=== PATIENT | male | born 1970 ===

== ENCOUNTER 2023-05-16 13:18 | Outpatient (REF) | payer OTHER, SELFPAY ==
[2023-05-16 16:19] LABS: Urine Cytology See Pathology rpt
== END 2023-05-16 13:19 | disposition home or self-care (01) ==
LOC: HO.LAB 13:18
PROVIDERS: PCP Internal Medicine; Visit Provider Urology
DX: R31.9 Hematuria, unspecified (principal); F17.200 Nicotine dependence, unspecified, uncomplicated; Z71.6 Tobacco abuse counseling
CPT/HCPCS: 88112; 99202

== ENCOUNTER 2023-05-16 13:18 | Outpatient (AMB) | payer OTHER, SELFPAY ==
--- NOTE | 2023-05-16 13:20 | A.OFFVIS_ITS ---
Intake Intake Visit Reasons: Microscopic hematuria Intake Note: NEW Patient presents today to established treatment for Microscopic: Meds- None Allergies to Antibiotic- No Known Allergies Blood Thinner- None Cotton Stomper Required: No Accompanied by: Self / Same As Patient Allergies No Known Allergies Allergy (Verified 05/16/23 13:38) HPI HPI Comments History of Present Illness Details Branden is a 52-year-old male who presents today to the office to establish as a new patient for an evaluation of microscopic hematuria. 05/16/2023-- He presents today for an evaluation of hematuria. He has a history of cigarette smoking, smokes ? pack a day for about 20 year. Denies dysuria, nocturia 1-2 x. 05/16/2023: Evaluation today--UA--Leukoc ytes: negative; blood: 1 +. 05/16/2023: Plan: Ct urogram was ordered . I will send urine for cytology. Follow-up in office cystoscopy. [facility] Surgical History History of surgery on arm Family History Father No problems noted. Mother No problems noted. Social History Alcohol intake: current Alcohol intake frequency: does not drink Patient Tobacco Use Status: Current everyday Tobacco user Review of Systems Const All systems reviewed & are unremarkable except as noted in HPI and below Reports no additional complaints Eyes Reports no additional complaints ENT Reports no additional complaints Card Denies dyspnea Resp Denies cough and Denies dyspnea GI Reports no additional complaints Musc Reports no additional complaints Skin/Breast Denies rash and Denies unusual bruising Neuro Reports no additional complaints Psych Reports no additional complaints Endo Reports no additional complaints Taj/Lymph Reports no additional complaints Aller/Immun Reports no additional complaints Physical Exam Const General: healthy appearing, no acute distress and well developed Orientation/consciousness: patient oriented x3 HEENT Head: Yes normocephalic and Yes atraumatic Eyes Conjunctivae: conjunctivae normal Neck Neck: Yes normal visual inspection Chest Chest palpation & inspection: normal inspection of the chest Resp Effort & Inspection: normal respiratory effort Cardio Rate: regular rate GI Inspection: Yes normal to inspection Skin General skin exam: no rashes or lesions noted Neuro General: patient oriented x3 Extrem General: No pedal edema Psych Appearance: grossly normal Affect: normal affect Assessment & Plan Assessment & Plan (1) Hematuria: Code(s): R31.9 - Hematuria, unspecified (2) Nicotine dependence: Code(s): F17.200 - Nicotine dependence, unspecified, uncomplicated Plan Ct urogram was ordered. I will send urine for cytology. Follow-up in office cystoscopy. Orders: Orders Blood Urea Nitrogen 05/16/23 R31.9 - Hematuria, unspecified Urine Cytology 05/16/23 R31.9 - Hematuria, unspecified Creatinine 05/16/23 R31.9 - Hematuria, unspecified CT urogram 05/16/23 F17.200 - Nicotine dependence, unspecified, uncomplicated, R31.9 - Hematuria, unspecified Patient Instructions: The patient had an opportunity to ask questions regarding treatment plan. All questions were answered. Imaging, Laboratory studies and physical exam results were discussed and reviewed in detail. No major barriers to understanding were identified. The patient expressed understanding and agreement with the above treatment plan. The patient is aware they should contact our office by phone for worsening of their current condition or the appearance of new symptoms. Compliance is encouraged with any medications and followup testing that is ordered. It is a privilege to be allowed the opportunity to participate in the urologic care of your patient. If you have any questions or concerns regarding treatment for the above conditions please do not hesitate to contact me. The office telephone contact is [phone]. This note is constructed in part using voice recognition software. While every effort has been made to ensure accuracy egg and spice mixer errors may have been included. Yours sincerely, Kaleb Leija MD Coding Level of Care Code New Pt Level 4 (32379) Diagnoses Hematuria R31.9 Nicotine dependence F17.200
== END 2023-05-16 13:59 | disposition home or self-care (01) ==
PROVIDERS: PCP Internal Medicine; Visit Provider Urology
DX: R31.9 Hematuria, unspecified (principal); F17.200 Nicotine dependence, unspecified, uncomplicated
CPT/HCPCS: 99204

== ENCOUNTER 2023-07-04 09:20 | Outpatient (REF) | payer OTHER, SELFPAY ==
--- NOTE | ~2023-07-04 | CT_ITS ---
EXAMINATION: CT ABDOMEN AND PELVIS WITH CONTRAST CLINICAL INFORMATION: Hematuria. The exam was ordered as a CT Urogram however the ct technologist perform the scan with IV contrast only due to patient being claustrophobic. COMPARISON: None available. TECHNIQUE: CT of the abdomen and pelvis is performed followed by split bolus contrast-enhanced images using 85 mL Omnipaque 350 contrast.? Postcontrast imaging is performed during the combined nephrogram and excretion phase. Sagittal and coronal reformatted images were obtained on the technologist's workstation for both the precontrast and postcontrast phases. This CT examination was performed using dose optimization techniques as appropriate, variously including the following: *Automated exposure control *Adjustment of mA and/or kV according to patient size (this includes techniques or standardized protocols for targeted exams where dose is matched to indication/reason for exam; i.e. extremities or head) *Use of iterative reconstruction technique DLP: 677 mGy-cm FINDINGS: LUNG BASES: 4 mm smooth solid nodule in the left lower lobe series 2 image 7. No follow-up imaging is recommended as per Fleischner Society guidelines. LIVER, GALLBLADDER, AND BILIARY TREE: The liver is normal in size, shape, and attenuation. No focal hepatic lesion or biliary ductal dilatation is present. The gallbladder is unremarkable with no evidence of radiopaque gallstones, gallbladder wall thickening, or obvious pericholecystic inflammatory changes. PANCREAS: No discrete mass. No ductal dilatation. SPLEEN: Unremarkable. ADRENAL GLANDS: No adrenal mass. KIDNEYS AND URETERS: Evaluation for small calculi is limited due to the lack of an noncontrast acquisition. No sizable calculi are visible. Nephrograms are symmetric. Urinary excretion of contrast is symmetric. No hydroureteronephrosis or ureteral abnormalities. BLADDER: Partially distended. Evaluation for bladder calculi is limited without a noncontrast acquisition however no sizable calculus is visible. No discrete bladder mass. The bladder base is deformed by the enlarged prostate. GASTROINTESTINAL TRACT: The small and large bowel are normal in caliber. The appendix appears normal. No focal bowel wall thickening. ABDOMINAL WALL: Fat-containing direct left inguinal hernia. LYMPH NODES: No lymphadenopathy. VASCULAR: No aortic aneurysm. PELVIC VISCERA: The prostate measures 4.8 x 4.9 x 4.6 cm. Approximately 50 mL. OSSEUS STRUCTURES: Mild degenerative changes in the spine. CT/CT urogram IMPRESSION: Exam is limited without noncontrast acquisition which was not performed due to patient's claustrophobia. No visible renal, ureteral, or bladder calculi. No suspicious renal mass. No hydroureteronephrosis. Enlarged prostate measuring approximately 50 mL. Other chronic and incidental findings as above. Fleischner society guidelines were followed.
[2023-07-04] MEDS: iohexoL 350 MG/ML 75 ML INFUS..BTL 85 ML IV (10:20)
[2023-07-04 14:10] LABS: Creatinine POC 0.7 mg/dL (0.5-1.4); GFR POC > 60
== END 2023-07-04 09:21 | disposition home or self-care (01) ==
LOC: HO.CT 09:20
PROVIDERS: PCP Internal Medicine; Visit Provider Urology
DX: R31.9 Hematuria, unspecified (principal); F17.200 Nicotine dependence, unspecified, uncomplicated
CPT/HCPCS: 74178; 82565; Q9967

== ENCOUNTER 2023-07-15 15:46 | Outpatient (AMB) | payer OTHER, SELFPAY ==
--- NOTE | 2023-07-15 15:47 | A.OFFVIS_ITS ---
Intake Intake Visit Reasons: CT Scan Results Intake Note: Patient presents today for CT Scan Results: Meds- None Allergies to Antibiotic- No Known Allergies Blood Thinner- None Drilling Inspector Required: No Accompanied by: Self / Same As Patient Allergies No Known Allergies Allergy (Verified 05/16/23 13:38) HPI HPI Comments History of Present Illness Details Branden is a 52-year-old male who presents today for Telehealth FU due to microscopic hematuria. Video Attempted. He was initially on-05/16/2023--for an evaluation of hematuria. He has a history of cigarette smoking, smokes ? pack a day for about 20 year. Denies dysuria, nocturia 1-2 x. 05/16/2023: Evaluation today--UA--Leukoc ytes: negative; blood: 1 +. 07/15/23--I have discussed CT urogram resu lts enlarged prostate, estimated volume 50 mL, urine cytology negative 07/15/23: Plan: Follow-up in office cystos copy. [facility] Surgical History History of surgery on arm Family History Father No problems noted. Mother No problems noted. Social History Alcohol intake: current Alcohol intake frequency: does not drink Patient Tobacco Use Status: Current everyday Tobacco user Review of Systems Const All systems reviewed & are unremarkable except as noted in HPI and below Reports no additional complaints Eyes Reports no additional complaints ENT Reports no additional complaints Card Denies dyspnea Resp Denies cough and Denies dyspnea GI Reports no additional complaints Musc Reports no additional complaints Skin/Breast Denies rash and Denies unusual bruising Neuro Reports no additional complaints Psych Reports no additional complaints Endo Reports no additional complaints Taj/Lymph Reports no additional complaints Aller/Immun Reports no additional complaints Results Reviewed Results Reviewed: Date of Service: 07/04/23 EXAMINATION: CT ABDOMEN AND PELVIS WITH CONTRAST CLINICAL INFORMATION: Hematuria. The exam was ordered as a CT Urogram however the cath lab technologist perform the scan with IV contrast only due to patient being claustrophobic. COMPARISON: None available. TECHNIQUE: CT of the abdomen and pelvis is performed followed by split bolus contrast-enhanced images using 85 mL Omnipaque 350 contrast. FINDINGS: LUNG BASES: 4 mm smooth solid nodule in the left lower lobe series 2 image 7. No follow-up imaging is recommended as per Fleischner Society guidelines. LIVER, GALLBLADDER, AND BILIARY TREE: The liver is normal in size, shape, and attenuation. No focal hepatic lesion or biliary ductal dilatation is present. The gallbladder is unremarkable with no evidence of radiopaque gallstones, gallbladder wall thickening, or obvious pericholecystic inflammatory changes. PANCREAS: No discrete mass. No ductal dilatation. SPLEEN: Unremarkable. ADRENAL GLANDS: No adrenal mass. KIDNEYS AND URETERS: Evaluation for small calculi is limited due to the lack of an noncontrast acquisition. No sizable calculi are visible. Nephrograms are symmetric. Urinary excretion of contrast is symmetric. No hydroureteronephrosis or ureteral abnormalities. BLADDER: Partially distended. Evaluation for bladder calculi is limited without a noncontrast acquisition however no sizable calculus is visible. No discrete bladder mass. The bladder base is deformed by the enlarged prostate. GASTROINTESTINAL TRACT: The small and large bowel are normal in caliber. The appendix appears normal. No focal bowel wall thickening. ABDOMINAL WALL: Fat-containing direct left inguinal hernia. LYMPH NODES: No lymphadenopathy. VASCULAR: No aortic aneurysm. PELVIC VISCERA: The prostate measures 4.8 x 4.9 x 4.6 cm. Approximately 50 mL. OSSEUS STRUCTURES: Mild degenerative changes in the spine. IMPRESSION: Exam is limited without noncontrast acquisition which was not performed due to patient's claustrophobia. No visible renal, ureteral, or bladder calculi. No suspicious renal mass. No hydroureteronephrosis. Enlarged prostate measuring approximately 50 mL. Collected: 05/16/23 Location: .LAB Received: 05/17/23 Diagnosis Urine: Negative for high-grade urothelial carcinoma. See comment. COMMENT: Cellular specimen consisting of a rare small group of urothelial cells, which are small/medium in size and have variable chromatin. The background has single urothelial cells without atypia, squamous cells, red blood cells, rare acute inflammatory cells and crystals. The differential diagnosis for these types of groups of urothelial cells includes infection, trauma (e.g. stones) and other types of urothelial neoplasms. Assessment & Plan Assessment & Plan (1) Hematuria: Code(s): R31.9 - Hematuria, unspecified (2) Nicotine dependence: Code(s): F17.200 - Nicotine dependence, unspecified, uncomplicated Plan fu office cystoscopy Patient Instructions: The patient had an opportunity to ask questions regarding treatment plan. All questions were answered. Imaging, Laboratory studies and physical exam results were discussed and reviewed in detail. No major barriers to understanding were identified. The patient expressed understanding and agreement with the above treatment plan. The patient is aware they should contact our office by phone for worsening of their current condition or the appearance of new symptoms. Compliance is encouraged with any medications and followup testing that is ordered. It is a privilege to be allowed the opportunity to participate in the urologic care of your patient. If you have any questions or concerns regarding treatment for the above conditions please do not hesitate to contact me. The office telephone contact is [phone]. This note is constructed in part using voice recognition software. While every effort has been made to ensure accuracy plating machine operator errors may have been included. Yours sincerely, Kaleb Leija MD Telehealth Telehealth Location of provider rendering services: practice address Patient Identification confirmed using: Name, : Yes Telehealth method: voice only Patient verbally consented to treatment: Yes Patient verbally consented to billing insurance company: Yes Patient informed of any privacy concerns related to visit: Yes Minutes spent on Phone/Video with Pt.: 18 Coding Level of Care Code Tele Est Pt Level 4 (24834) Diagnoses Hematuria R31.9 Nicotine dependence F17.200
--- OUTSIDE RECORDS SUMMARY | 2023-07-15 15:48 | XMS_ITS | Continuity of Care Document ---
Author Name Unknown Organization [facility] Address [address] [place] [id number]- Care Team Providers Care It Quality Analyst Name Role Phone Jeanne Gandara DO Primary Care Physician [facility]counter [facility] Date(s): 10/03/19 - 11/02/19 [facility] [address] [place] [phone]- [facility] Attending Physician: Tory Pinto Admitting Physician: AdmtrTory Referring Physician: AdmtrTory Allergies, Adverse Reactions, Alerts Substance Reaction Severity Status NKA Active Immunizations Given and Recorded Vaccine Date Status Refusal Reason Varicella Virus Vaccine 1 04/27/17 Given Varicella Virus Vaccine 09/07/12 Recorded influenza virus vaccine, inactivated 2 03/30/17 Gi serafin influenza virus vaccine, inactivated 03/26/16 Give n hepatitis B adult vaccine 06/03/16 Given hepatitis B adult vaccine 07/17/12 Recorded hepatitis B adult vaccine 06/15/12 Recorded Measles/Mumps/Rubella Virus Vaccine 06/15/12 Recor ded Measles/Mumps/Rubella Virus Vaccine 05/15/12 Recor ded tetanus/diphtheria/pertussis, acel(Tdap) 3 05/24/12 Recorded 1Result Comment: [04/27/2017] Reconstituted with sterile diluent [employer] filippo Lot [id number] exp. 04/13/2019 2Result Comment: [03/30/2017] [facility] [place] [id number] 3Location History: [facility] Medications 0.2 % nifedipine hydrophylic ointment 0.2 % nifedipine hydrophylic ointment, See Instructions, # 30 Gm, Refills 1, Tot. Refills 1, Maintenance, apply a pea size amout to anal area for pain, use 3-4x a day for 6 weeks, 01/26/19 10:45:16 EDT, Compound Start Date: 01/26/19 Status: Ordered atorvastatin 20 mg oral tablet 1 tablet = 20 mg, By Mouth, Daily, # 30 tablet, 11 Refills, Maintenance, Tablet, Route to Pharmacy Electronically, [id number], [address] Start Date: 07/13/18 Status: Ordered Colace sodium 100 mg oral capsule 100 mg, 1, capsule, By Mouth, 2 times a day, PRN, with plenty of water., # 60 capsule, Refills 2, Tot. Refills 2, Maintenance, for constipation, 10/04/18 11:02:18 EDT, Route to Pharmacy Electronically, [id number], [address] Start Date: 10/04/18 Status: Ordered Melatonin 5 mg oral tablet 1 tablet = 5 mg, By Mouth, Daily at bedtime, PRN for insomnia, for 30 days, # 60 tablet, 1 Refills,Acute 12/02/19 10:51:00 EDT, 10/03/19 10:51:00 EDT, Tablet, [facility] #[id number], 171, cm, 03/07/19 11:09:00 EDT, Height Start Date: 10/03/19 Stop Date: 12/02/19 Status: Ordered mirtazapine 30 mg oral tablet 1 tablet = 30 mg, By Mouth, Daily at bedtime, dose increased, # 30 tablet, 2 Refills, Maintenance, 09/19/19 10:52:00 EDT, Tablet, [facility] #[id number], 171, cm, 03/07/19 11:09:00 EDT, Height Start Date: 09/19/19 Status: Ordered nicotine 21 mg/24 hr transdermal film, extended release 1 patch, Topically, Daily, no smoking with patch, # 30 patch, 1 Refills, Maintenance, 09/13/19 13:18:00 EDT, Patch, [facility] #[id number], 1 patch Topically Daily,Instr:no smoking with patch, 171, cm, 03/07/19 11:09:00 EDT, Height Start Date: 09/13/19 Status: Ordered Proctozone HC 2.5% topical cream 1 applicator, Topically, 2 times a day, # 30 Gm, 1 Refills, Maintenance, 03/07/19 11:32:32 EDT, 1 applicator Topically 2 times a day,x14 days Start Date: 03/07/19 Stop Date: 04/04/19 Status: Ordered Problem List Condition Effective Dates Status Health Status Inform ant Burning epigastric pain(Confirmed) Active Burning reflux(Confirmed) Active Cubital tunnel syndrome on left(Confirmed) Active Dyslipidemia(Confirmed) Active External hemorrhoid(Confirmed) Active RADHA (generalized anxiety disorder)(Confirmed) Active Heartburn symptom(Confirmed) Active Vomiting(Confirmed) Active Social History Social History Type Response Smoking Status Current some day smo ker; Type: Cigarettes; Tobacco use times per day: 15-20 cigarettes; Started at age: 29; entered on: 09/24/14 Sex
--- OUTSIDE RECORDS SUMMARY | 2023-07-15 15:48 | XMS_ITS | Continuity of Care Document ---
Author Name Unknown Organization [facility] Address [address] [place] [address]- Care Team Providers Care Human Services Program Specialist Name Role Phone Jeanne Gandara DO Primary Care Physician [facility] Date[facility]s): 09/27/19 - 11/04/19 [facility] [address] [place] [id number]- [facility] Attending Physician: Not on Staff, Attending MD Allergies, Adverse Reactions, Alerts Substance Reaction Severity [...] 1Result Comment: [04/27/2017] Reconstituted with sterile diluent [employer] filippo Lot [id number] exp. 04/13/2019 2Result Comment: [03/30/2017] [facility] [place] [id number] 3Location History: [facility] Medications 0.2 % nifedipine hydrophylic ointment [...] Refills, Maintenance, Tablet, Route to Pharmacy Electronically, [facility]_[id number], [address] Start Date: 07/13/18 Status: Ordered Colace sodium 100 mg oral capsule 100 mg, 1, capsule, By Mouth, 2 times a day, PRN, with plenty of water., # 60 capsule, Refills 2, Tot. Refills 2, Maintenance, for constipation, 10/04/18 11:02:18 EDT, Route to Pharmacy Electronically, [facility]_[id number], [address] Start Date: 10/04/18 Status: Ordered Melatonin 5 mg oral tablet 1 tablet = 5 mg, By Mouth, Daily at bedtime, PRN for insomnia, for 30 days, # 60 tablet, 1 Refills,Acute 12/02/19 10:51:00 EDT, 10/03/19 10:51:00 EDT, Tablet, [facility] #[id number], 171, cm, 03/07/19 11:09:00 EDT, Height Start Date: 10/03/19 Stop Date: 12/02/19 Status: Ordered mirtazapine 30 mg oral tablet 1 tablet = 30 mg, By Mouth, Daily at bedtime, dose increased, # 30 tablet, 2 Refills, Maintenance, 09/19/19 10:52:00 EDT, Tablet, [facility] #[id number], 171, cm, 03/07/19 11:09:00 EDT, Height Start Date: 09/19/19 Status: Ordered nicotine 21 mg/24 hr transdermal film, extended release 1 patch, Topically, Daily, no smoking with patch, # 30 patch, 1 Refills, Maintenance, 09/13/19 13:18:00 EDT, Patch, [facility] #[id number], 1 patch Topically Daily,Instr:no smoking with patch, [...]
--- OUTSIDE RECORDS SUMMARY | 2023-07-15 15:48 | XMS_ITS | Continuity of Care Document ---
Author Name Unknown Organization [facility] Address [address] [place] [id number]- Care Team Providers Care Multifocal Button Grinder Name Role Phone Jeanne Gandara DO Primary Care Physician [facility]counter [facility] Date(s): 09/19/19 - 09/26/19 [facility] [address] [place] [id number]- [facility] Attending Physician: Sonali Murphy NP Allergies, Adverse Reactions, Alerts Substance Reaction Severity [...] 1Result Comment: [04/27/2017] Reconstituted with sterile diluent [employer]o Lot [id number] exp. 04/13/2019 2Result Comment: [03/30/2017] [facility] [phone] 3Location History: Replaced By [facility] Medications 0.2 % nifedipine hydrophylic ointment [...] Refills, Maintenance, Tablet, Route to Pharmacy Electronically, NCPDP_[id number], [address] Start Date: 07/13/18 Status: Ordered citalopram 10 mg oral tablet 10 mg, 1, tablet, By Mouth, Daily, take daily for anxiety/ depression, stop Wellbutrin, # 30 tablet, Refills 1, Tot. Refills 1, Maintenance, 09/20/19 15:20:00 EDT, Route to Pharmacy Electronically, [facility] #[id number], 171, cm, 03/07/19 11:09:... Start Date: 09/20/19 Status: Ordered Colace sodium 100 mg oral capsule 100 mg, 1, capsule, By Mouth, 2 times a day, PRN, with plenty of water., # 60 capsule, Refills 2, Tot. Refills 2, Maintenance, for constipation, 10/04/18 11:02:18 EDT, Route to Pharmacy Electronically, NCPDP_[id number], [address] Start Date: 10/04/18 Status: Ordered mirtazapine 30 mg oral tablet 1 tablet = 30 mg, By Mouth, Daily at bedtime, dose increased, # 30 tablet, 2 Refills, Maintenance, 09/19/19 10:52:00 EDT, Tablet, [facility] #[id number], 171, cm, 03/07/19 11:09:00 EDT, Height Start Date: 09/19/19 Status: Ordered nicotine 21 mg/24 hr transdermal film, extended release 1 patch, Topically, Daily, no smoking with patch, # 30 patch, 1 Refills, Maintenance, 09/13/19 13:18:00 EDT, Patch, [facility] #[id number], 1 patch Topically Daily,Instr:no smoking with patch, [...]
--- OUTSIDE RECORDS SUMMARY | 2023-07-15 15:48 | XMS_ITS | Continuity of Care Document ---
Author Name Unknown Organization [facility] Address [address] [place] [address]- Care Team Providers Care Seat Mender Name Role Phone Jeanne Gandara DO Primary Care Physician [facility]): [facility]21 - 11/26/21 [facility] [address] [place] [id number] Attending Physician: Jeanne Gandara DO Admitting Physician: Jeanne Gandara DO Allergies, Adverse Reactions, Alerts No Known Allergies Immunizations Given and Recorded Vaccine Date Status Refusal Reason SARS-CoV-2 (COVID-19) mRNA BNT-162b2 vac 02/10/21 Recorded SARS-CoV-2 (COVID-19) mRNA BNT-162b2 vac 01/20/21 Recorded influenza virus vaccine, inactivated 02/04/20 Matt rded influenza virus vaccine, inactivated 03/03/18 Matt rded influenza virus vaccine, inactivated 1 03/30/17 Gi serafin influenza virus vaccine, inactivated 03/26/16 Give n influenza virus vaccine, inactivated 07/02/15 Matt rded Varicella Virus Vaccine 2 04/27/17 Given Varicella Virus Vaccine 09/07/12 Recorded hepatitis B adult vaccine 06/03/16 Given hepatitis B adult vaccine 07/17/12 Recorded hepatitis B adult vaccine 06/15/12 Recorded Measles/Mumps/Rubella Virus Vaccine 06/15/12 Recor ded Measles/Mumps/Rubella Virus Vaccine 05/15/12 Recor ded tetanus/diphtheria/pertussis, acel(Tdap) 3 05/24/12 Recorded 1Result Comment: [03/30/2017] [facility] [id number] 2Result Comment: [04/27/2017] Reconstituted with sterile diluent [employer] and [employer] filippo Lot [id number] exp. 04/13/2019 3Location History: [facility] Medications atorvastatin 20 mg oral tablet 1 tablet = 20 mg, By Mouth, Daily, # 30 tablet, 11 Refills, Maintenance, 09/14/21 9:11:00 EDT, Tablet, [facility] #[id number], 168, cm, 09/14/21 8:33:00 EDT, Height, 75, kg, 08/04/20 16:27:00 EST, Dry Weight Start Date: 09/14/21 Status: Ordered Flonase Sensimist 27.5 mcg/inh nasal spray = 27.5 mcg, Inhalation, Daily, PRN Congestion, Use in each nostril, # 15.8 mL, 0 Refills, Maintenance, 05/18/21 15:29:00 EST, [facility] #[id number], Partial fill upon patient request if the prescription is for a schedule II opioid drug., 27.5 mc... Start Date: 05/18/21 Status: Ordered omeprazole 20 mg oral enteric coated capsule 1 capsule = 20 mg, By Mouth, Daily, # 30 capsule, 2 Refills, Maintenance, 09/14/21 9:11:00 EDT, EC Capsule, [facility] #[id number], Partial fill upon patient request if the prescription is for aschedule II opioid drug., 168, cm, 09/14/21 8:33:00... Start Date: 09/14/21 Status: Ordered Problem List Condition Effective Dates Status Health Status Inform ant Burning epigastric pain(Confirmed) Active Burning reflux(Confirmed) Active Cubital tunnel syndrome on left(Confirmed) Active Dyslipidemia(Confirmed) Active External hemorrhoid(Confirmed) Active RADHA (generalized anxiety disorder)(Confirmed) Active Heartburn symptom(Confirmed) Active Obese class I(Confirmed) Active Vomiting(Confirmed) Active Social History Social History Type Response Smoking Status 10 or more cigarette s (1/2 pack or more)/day in last 30 days; Interested in cessation: No entered on: 03/02/21 Sex
--- OUTSIDE RECORDS SUMMARY | 2023-07-15 15:48 | XMS_ITS | Continuity of Care Document ---
Author Name Unknown Organization [facility] Address [address] [place] [address]- Care Team Providers Care Route Sales Associate Name Role Phone Jeanne Gandara DO Primary Care Physician [facility] 09[facility]11/21 - 10/21/21 [facility] [address] [place] [address]- Attending Physician: Marlo Banegas Admitting Physician: Marlo Banegas Allergies, Adverse Reactions, Alerts No Known Allergies [...] acel(Tdap) 3 05/24/12 Recorded 1Result Comment: [03/30/2017] [facility] [id number] 2Result Comment: [04/27/2017] Reconstituted with sterile diluent [employer] and Dohme filippo Lot [id number] exp. 04/13/2019 3Location History: [facility] Medications atorvastatin 20 mg oral tablet 1 tablet = 20 mg, By Mouth, Daily, # 30 tablet, 11 Refills, Maintenance, 09/14/21 9:11:00 EDT, Tablet, [facility] #[id number], 168, cm, 09/14/21 8:33:00 EDT, Height, 75, kg, 08/04/20 16:27:00 EST, Dry Weight Start Date: 09/14/21 Status: Ordered Flonase Sensimist 27.5 mcg/inh nasal spray = 27.5 mcg, Inhalation, Daily, PRN Congestion, Use in each nostril, # 15.8 mL, 0 Refills, Maintenance, 05/18/21 15:29:00 EST, [facility] #[id number], Partial fill upon patient request if the prescription is for a schedule II opioid drug., 27.5 mc... Start Date: 05/18/21 Status: Ordered omeprazole 20 mg oral enteric coated capsule 1 capsule = 20 mg, By Mouth, Daily, # 30 capsule, 2 Refills, Maintenance, 09/14/21 9:11:00 EDT, EC Capsule, [facility] #[id number], Partial fill upon patient request if the [...]
--- OUTSIDE RECORDS SUMMARY | 2023-07-15 15:48 | XMS_ITS | Continuity of Care Document ---
Author Name Unknown Organization [facility] Address [address] [place] [address]- Care Team Providers Care Taxation Consultant Name Role Phone Jeanne Gandara DO Primary Care Physician [facility]): 05[facility]18/21 - 06/17/21 [facility] [address] [place] [address]- Attending Physician: Admtr, Tory Admitting Physician: Admtr, Tory Referring Physician: Admtr, Ar8 Allergies, Adverse Reactions, Alerts Substance Reaction Severity [...] acel(Tdap) 3 05/24/12 Recorded 1Result Comment: [03/30/2017] [facility] [id number] 2Result Comment: [04/27/2017] Reconstituted with sterile diluent [employer] and Dohme filippo Lot [id number] exp. 04/13/2019 3Location History: [facility] Medications atorvastatin 20 mg oral tablet 1 tablet = 20 mg, By Mouth, Daily, # 30 tablet, 0 Refills, Maintenance, 05/05/21 8:50:00 EST, Tablet, [facility] #[id number], 168, cm, 05/01/21 14:15:00 EST, Height, 75, kg, 08/04/20 16:27:00 EST, Dry Weight Start Date: 05/05/21 Stop Date: 06/04/21 Status: Ordered Flonase Sensimist 27.5 mcg/inh nasal spray = 27.5 mcg, Inhalation, Daily, PRN Congestion, Use in each nostril, # 15.8 mL, 0 Refills, Maintenance, 05/18/21 15:29:00 EST, [facility] #[id number], Partial fill upon patient request if the prescription is for a schedule II opioid drug., 27.5 mc... Start Date: 05/18/21 Status: Ordered omeprazole 20 mg oral enteric coated capsule 1 capsule = 20 mg, By Mouth, Daily, # 30 capsule, 0 Refills, Maintenance, 05/05/21 8:51:00 EST, EC Capsule, [facility] #[id number], Partial fill upon patient request if the prescription is for aschedule II opioid drug., 168, cm, 05/01/21 14:15:0... Start Date: 05/05/21 Stop Date: 06/04/21 Status: Ordered Problem List Condition Effective Dates [...]
--- OUTSIDE RECORDS SUMMARY | 2023-07-15 15:48 | XMS_ITS | Continuity of Care Document ---
Author Name Unknown Organization [facility] Address [address] [place] [address]- Care Team Providers Care Soa Integration Developer Name Role Phone Jeanne Gandara DO Primary Care Physician [place] [facility] [place] 02/03[place]22 - 04/03/22 [facility] [address] [place] [address]- Attending Physician: Not on Staff, Attending MD Allergies, Adverse Reactions, Alerts No Known Allergies Immunizations Given and Recorded Vaccine Date Status Refusal Reason SARS-CoV-2 mRNA (ocrcgud-kajh-jrbqv) vax 12/16/21 Recorded influenza virus vaccine, inactivated 03/09/21 Matt rded influenza virus vaccine, inactivated 02/04/20 Matt rded influenza virus vaccine, inactivated 03/03/18 Matt rded influenza virus vaccine, inactivated 1 03/30/17 Gi serafin influenza virus vaccine, inactivated 03/26/16 Give n influenza virus vaccine, inactivated 07/02/15 Matt rded SARS-CoV-2 (COVID-19) mRNA BNT-162b2 vac 02/10/21 Recorded SARS-CoV-2 (COVID-19) mRNA BNT-162b2 vac 01/20/21 Recorded Varicella Virus Vaccine 2 04/27/17 Given Varicella Virus Vaccine 09/07/12 Recorded hepatitis B adult vaccine 06/03/16 Given hepatitis B adult vaccine 07/17/12 Recorded hepatitis B adult vaccine 06/15/12 Recorded Measles/Mumps/Rubella Virus Vaccine 06/15/12 Recor ded Measles/Mumps/Rubella Virus Vaccine 05/15/12 Recor ded tetanus/diphtheria/pertussis, acel(Tdap) 3 12/12/12 Recorded 1Result Comment: [03/30/2017] [facility] [id number] 2Result Comment: [04/27/2017] Reconstituted with sterile diluent [employer] Sharp and Dohme filippo Lot [id number] exp. 04/13/2019 3Location History: [facility] Medications atorvastatin 20 mg oral tablet 1 tablet = 20 mg, By Mouth, Daily, # 30 tablet, 11 Refills, Maintenance, 09/14/21 9:11:00 EDT, Tablet, [facility] #[id number], 168, cm, 09/14/21 8:33:00 EDT, Height, 75, kg, 08/04/20 16:27:00 EST, Dry Weight Start Date: 09/14/21 Status: Ordered Flonase Sensimist 27.5 mcg/inh nasal spray = 27.5 mcg, Inhalation, Daily, PRN Congestion, Use in each nostril, # 15.8 mL, 0 Refills, Maintenance, 05/18/21 15:29:00 EST, [facility] #[id number], Partial fill upon patient request if the prescription is for a schedule II opioid drug., 27.5 mc... Start Date: 05/18/21 Status: Ordered omeprazole 20 mg oral enteric coated capsule 1 capsule = 20 mg, By Mouth, Daily, # 30 capsule, 2 Refills, Maintenance, 12/21/21 11:37:00 EDT, ECCapsule, [facility] #[id number], Partial fill upon patient request if the prescription is for a schedule II opioid drug., 168, cm, 10/27/21 10:08:... Start Date: 12/21/21 Status: Ordered Problem List Condition Confirmation Course Effective Dates Status Health St [facility] Informant Burning epigastric pain Confirmed Active Burning reflux Confirmed Active Cubital tunnel syndrome on left Confirmed Active Dyslipidemia Confirmed Active External hemorrhoid Confirmed Active RADHA (generalized anxiety disorder) Confirmed Active Heartburn symptom Confirmed Active Obese class I Confirmed Active Vomiting Confirmed Active Social History Social History Type Response Smoking Status 10 or more cigarette s (1/2 pack or more)/day in last 30 days; Interested in cessation: No entered on: 03/02/21 Sex Patient Care team information Personnel Name: Jeanne Gandara DO Address: Address: [address] [place] [address]
--- OUTSIDE RECORDS SUMMARY | 2023-07-15 15:48 | XMS_ITS | Continuity of Care Document ---
Author Name Unknown Organization [facility] Address [address] [place] [id number]- Care Team Providers Care Watchguard Name Role Phone Jeanne Gandara DO Primary Care Physician [place] [facility] [place] 09/28/[place] - 10/28/[address] [address]- Attending Physician: Admtr, Zion8 Admitting Physician: Admtr, Ar8 Referring Physician: Admtr, Ar8 Allergies, Adverse Reactions, Alerts No Known Allergies [...] Comment: [03/30/2017] [facility] [id number] 2Result Comment: [04/27/2017] Reconstituted with sterile diluent [employer] Sharp and Dohme filippo Lot [id number] exp. 04/13/2019 3Location History: [facility] Medications atorvastatin 20 mg oral tablet 1 tablet = 20 mg, By Mouth, Daily, # 30 tablet, 11 Refills, Maintenance, 09/14/21 9:11:00 EDT, Tablet, [facility] #[id number], 168, cm, 09/14/21 8:33:00 EDT, Height, 75, kg, 08/04/20 16:27:00 EST, Dry Weight Start Date: 09/14/21 Status: Ordered Flonase Sensimist 27.5 mcg/inh nasal spray = 27.5 mcg, Inhalation, Daily, PRN Congestion, Use in each nostril, # 15.8 mL, 0 Refills, Maintenance, 05/18/21 15:29:00 EST, [facility] #[id number], Partial fill upon patient request if the prescription is for a schedule II opioid drug., 27.5 mc... Start Date: 05/18/21 Status: Ordered omeprazole 20 mg oral enteric coated capsule 1 capsule = 20 mg, By Mouth, Daily, # 30 capsule, 2 Refills, Maintenance, 09/14/21 9:11:00 EDT, EC Capsule, [facility] #[id number], Partial fill upon patient request if the [...]
--- OUTSIDE RECORDS SUMMARY | 2023-07-15 15:48 | XMS_ITS | Continuity of Care Document ---
Author Name Unknown Organization [facility] Address [address] [place] [address]- Care Team Providers Care Remedial Reading Teacher Name Role Phone Jeanne Gandara DO Primary Care Physician [facility] 07/14/21 - 09/16/[address] [address]- Attending Physician: Not on Staff, Attending MD [...] acel(Tdap) 3 05/24/12 Recorded 1Result Comment: [03/30/2017] [facility] [id number] 2Result Comment: [04/27/2017] Reconstituted with sterile diluent [employer] Sharp and Dohme filippo Lot [id number] exp. 04/13/2019 3Location History: [facility] Medications atorvastatin 20 mg oral tablet 1 tablet = 20 mg, By Mouth, Daily, # 30 tablet, 11 Refills, Maintenance, 09/14/21 9:11:00 EDT, Tablet, [facility] #[id number], 168, cm, 09/14/21 8:33:00 EDT, Height, 75, kg, 08/04/20 16:27:00 EST, Dry Weight Start Date: 09/14/21 Status: Ordered Flonase Sensimist 27.5 mcg/inh nasal spray = 27.5 mcg, Inhalation, Daily, PRN Congestion, Use in each nostril, # 15.8 mL, 0 Refills, Maintenance, 05/18/21 15:29:00 EST, [facility] #[id number], Partial fill upon patient request if the prescription is for a schedule II opioid drug., 27.5 mc... Start Date: 05/18/21 Status: Ordered omeprazole 20 mg oral enteric coated capsule 1 capsule = 20 mg, By Mouth, Daily, # 30 capsule, 2 Refills, Maintenance, 09/14/21 9:11:00 EDT, EC Capsule, [facility] #[id number], Partial fill upon patient request if the [...]
--- OUTSIDE RECORDS SUMMARY | 2023-07-15 15:48 | XMS_ITS | Continuity of Care Document ---
Author Name Unknown Organization [facility] Address [address] [place] [address]- Care Team Providers Care Patient Day Coordinator Name Role Phone Jeanne Gandara DO Primary Care Physician [facility]): 03[facility]04/22 - 04/03/22 [facility] [address] [place] [address] Attending Physician: Tory Pinto Admitting Physician: AdmTory sanabria Referring Physician: AdmtrTory Allergies, Adverse Reactions, Alerts No Known Allergies Immunizations Given and Recorded Vaccine Date Status Refusal Reason SARS-CoV-2 mRNA (bpfqrst-wqcu-fomin) vax 12/16/21 Recorded influenza virus vaccine, inactivated [...] Recorded 1Result Comment: [03/30/2017] [facility] [id number] 2Result Comment: [04/27/2017] Reconstituted with sterile diluent [employer] and [employer] filippo Lot [id number] exp. 04/13/2019 3Location History: [facility] Medications atorvastatin 20 mg oral tablet 1 tablet = 20 mg, By Mouth, Daily, # 30 tablet, 11 Refills, Maintenance, 09/14/21 9:11:00 EDT, Tablet, [facility] #[id number], 168, cm, 09/14/21 8:33:00 EDT, Height, 75, kg, 08/04/20 16:27:00 EST, Dry Weight Start Date: 09/14/21 Status: Ordered Flonase Sensimist 27.5 mcg/inh nasal spray = 27.5 mcg, Inhalation, Daily, PRN Congestion, Use in each nostril, # 15.8 mL, 0 Refills, Maintenance, 05/18/21 15:29:00 EST, [facility] #[id number], Partial fill upon patient request if the prescription is for a schedule II opioid drug., 27.5 mc... Start Date: 05/18/21 Status: Ordered omeprazole 20 mg oral enteric coated capsule 1 capsule = 20 mg, By Mouth, Daily, # 30 capsule, 2 Refills, Maintenance, 12/21/21 11:37:00 EDT, ECCapsule, [facility] #[id number], Partial fill upon patient request if the [...] Personnel Name: Jeanne Gandara DO Address: Address: [address] [place] [address] [address]-
--- OUTSIDE RECORDS SUMMARY | 2023-07-15 15:48 | XMS_ITS | Continuity of Care Document ---
Author Name Unknown Organization [facility] Address [address] [place] [address]- Care Team Providers Care Ornamental Iron Erector Name Role Phone Jeanne Gandara DO Primary Care Physician [facility] 05/04/21 - 06/03/21 [facility] [address] [place] [address]- Allergies, Adverse Reactions, Alerts Substance Reaction Severity [...] acel(Tdap) 3 05/24/12 Recorded 1Result Comment: [03/30/2017] [facility] [id number] 2Result Comment: [04/27/2017] Reconstituted with sterile diluent [employer] and [employer] filippo Lot [id number] exp. 04/13/2019 3Location History: [facility] Medications atorvastatin 20 mg oral tablet 1 tablet = 20 mg, By Mouth, Daily, # 30 tablet, 0 Refills, Maintenance, 05/05/21 8:50:00 EST, Tablet, [facility] #[id number], 168, cm, 05/01/21 14:15:00 EST, Height, 75, kg, 08/04/20 16:27:00 EST, Dry Weight Start Date: 05/05/21 Stop Date: 06/04/21 Status: Ordered Flonase Sensimist 27.5 mcg/inh nasal spray = 27.5 mcg, Inhalation, Daily, PRN Congestion, Use in each nostril, # 15.8 mL, 0 Refills, Maintenance, 05/18/21 15:29:00 EST, [facility] #[id number], Partial fill upon patient request if the prescription is for a schedule II opioid drug., 27.5 mc... Start Date: 05/18/21 Status: Ordered omeprazole 20 mg oral enteric coated capsule 1 capsule = 20 mg, By Mouth, Daily, # 30 capsule, 0 Refills, Maintenance, 05/05/21 8:51:00 EST, EC Capsule, [facility] #[id number], Partial fill upon patient request if the [...]
--- OUTSIDE RECORDS SUMMARY | 2023-07-15 15:48 | XMS_ITS | Continuity of Care Document ---
Author Name Unknown Organization [facility] Address [address] [place] [address]- Care Team Providers Care Sales Representative Groceries Name Role Phone Jeanne Gandara DO Primary Care Physician [facility]): 10/03/19 - 10/10/19 [facility] [address] [place] [id number] [facility] Attending Physician: Jeanne Gandara DO Allergies, Adverse Reactions, Alerts Substance Reaction Severity [...] 1Result Comment: [04/27/2017] Reconstituted with sterile diluent [employer] Sharp and Dohme filippo Lot [id number] exp. 04/13/2019 2Result Comment: [03/30/2017] [facility] [id number] 3Location History: [facility] Medications 0.2 % nifedipine hydrophylic ointment [...] Refills, Maintenance, Tablet, Route to Pharmacy Electronically, NCPDP_[id number], [address] Start Date: 07/13/18 Status: Ordered Colace sodium 100 mg oral capsule 100 mg, 1, capsule, By Mouth, 2 times a day, PRN, with plenty of water., # 60 capsule, Refills 2, Tot. Refills 2, Maintenance, for constipation, 10/04/18 11:02:18 EDT, Route to Pharmacy Electronically, NCPDP_[id number], [address] Start Date: 10/04/18 Status: Ordered Melatonin 5 mg oral tablet 1 tablet = 5 mg, By Mouth, Daily at bedtime, PRN for insomnia, for 30 days, # 60 tablet, 1 Refills,Acute 12/02/19 10:51:00 EDT, 10/03/19 10:51:00 EDT, Tablet, [facility] #[id number], 171, cm, 03/07/19 11:09:00 EDT, Height Start Date: 10/03/19 Stop Date: 12/02/19 Status: Ordered mirtazapine 30 mg oral tablet 1 tablet = 30 mg, By Mouth, Daily at bedtime, dose increased, # 30 tablet, 2 Refills, Maintenance, 09/19/19 10:52:00 EDT, Tablet, [facility] #[id number], 171, cm, 03/07/19 11:09:00 EDT, Height Start Date: 09/19/19 Status: Ordered nicotine 21 mg/24 hr transdermal film, extended release 1 patch, Topically, Daily, no smoking with patch, # 30 patch, 1 Refills, Maintenance, 09/13/19 13:18:00 EDT, Patch, [facility] #[id number], 1 patch Topically Daily,Instr:no smoking with patch, [...]
--- OUTSIDE RECORDS SUMMARY | 2023-07-15 15:48 | XMS_ITS | Continuity of Care Document ---
Author Name Unknown Organization [facility] Address [address] [place] [address]- Care Team Providers Care Reception Clerk Name Role Phone Jeanne Gandara DO Primary Care Physician [facility]): 11/04/21 - 12/04/21 [facility] [address] [place] [id number] Allergies, Adverse Reactions, Alerts No Known Allergies [...] acel(Tdap) 3 05/24/12 Recorded 1Result Comment: [03/30/2017] [facility] [id number] 2Result Comment: [04/27/2017] Reconstituted with sterile diluent [employer] filippo Lot [id number] exp. 04/13/2019 3Location History: [facility] Medications atorvastatin 20 mg oral tablet 1 tablet = 20 mg, By Mouth, Daily, # 30 tablet, 11 Refills, Maintenance, 09/14/21 9:11:00 EDT, Tablet, [facility] #[id number], 168, cm, 09/14/21 8:33:00 EDT, Height, 75, kg, 08/04/20 16:27:00 EST, Dry Weight Start Date: 09/14/21 Status: Ordered Flonase Sensimist 27.5 mcg/inh nasal spray = 27.5 mcg, Inhalation, Daily, PRN Congestion, Use in each nostril, # 15.8 mL, 0 Refills, Maintenance, 05/18/21 15:29:00 EST, [facility] #[id number], Partial fill upon patient request if the prescription is for a schedule II opioid drug., 27.5 mc... Start Date: 05/18/21 Status: Ordered omeprazole 20 mg oral enteric coated capsule 1 capsule = 20 mg, By Mouth, Daily, # 30 capsule, 2 Refills, Maintenance, 09/14/21 9:11:00 EDT, EC Capsule, [facility] #[id number], Partial fill upon patient request if the [...]
--- OUTSIDE RECORDS SUMMARY | 2023-07-15 15:48 | XMS_ITS | Continuity of Care Document ---
Author Name Unknown Organization [facility] Address [address] [place] [phone]- Care Team Providers Care Fashion Model Name Role Phone Jeanne Gandara DO Primary Care Physician [facility] 07[facility]19 - 07/14/19 [facility] [address] [place] [id number]- [facility] Attending Physician: Tory Pinto Admitting [...] 1Result Comment: [04/27/2017] Reconstituted with sterile diluent [employer] Sharp and Dohme filippo Lot [id number] exp. 04/13/2019 2Result Comment: [03/30/2017] [facility] [id number] 3Location History: [facility] Medications 0.2 % nifedipine [...] Refills, Maintenance, Tablet, Route to Pharmacy Electronically, NCPDP_[id number], [address] Start Date: 07/13/18 Status: Ordered Colace sodium 100 mg oral capsule 100 mg, 1, capsule, By Mouth, 2 times a day, PRN, with plenty of water., # 60 capsule, Refills 2, Tot. Refills 2, Maintenance, for constipation, 10/04/18 11:02:18 EDT, Route to Pharmacy Electronically, NCPDP_[id number], [address] Start Date: 10/04/18 Status: Ordered ibuprofen 600 mg oral tablet 600 mg, 1, tablet, By Mouth, Every 6 hours, do not take within 6 hours of Excedrin Migraine, # 120 tablet, Refills 1, Tot. Refills 1, Maintenance, 02/14/18 15:23:35 EDT, Route to Pharmacy Electronically, NCPDP_[id number], [address] Start Date: 02/14/18 Stop Date: 04/15/18 Status: Ordered Proctozone HC 2.5% topical cream 1 applicator, Topically, 2 times a day, # 30 Gm, 1 Refills, Maintenance, 03/07/19 11:32:32 EDT, 1 applicator Topically 2 times a day,x14 days Start Date: 03/07/19 Stop Date: 04/04/19 Status: Ordered sertraline 100 mg oral tablet 1 tablet = 100 mg, By Mouth, Daily, # 30 tablet, 5 Refills, Maintenance, 12/08/18 11:31:10 EDT, Tablet Start Date: 12/08/18 Stop Date: 06/06/19 Status: Ordered Problem List Condition Effective Dates [...]
--- OUTSIDE RECORDS SUMMARY | 2023-07-15 15:48 | XMS_ITS | Continuity of Care Document ---
Author Name Unknown Organization [facility] Address [address] [place] [address]- Care Team Providers Care Keeler Polygraph Operator Name Role Phone Jeanne Gandara DO Primary Care Physician [facility] - 08/03/19 [facility] [address] [place] [address]- [facility] Attending Physician: Jeanne Gandara DO Admitting Physician: [...] 1Result Comment: [04/27/2017] Reconstituted with sterile diluent Induction Manager Sharp and D[employer] filippo Lot [id number] exp. 04/13/2019 2Result Comment: [03/30/2017] [facility] [id number] 3Location History: [facility] Medications 0.2 % nifedipine hydrophylic ointment [...] Refills, Maintenance, Tablet, Route to Pharmacy Electronically, NCPDP_[id number], [facility] Start Date: 07/13/18 Status: Ordered Colace sodium 100 mg oral capsule 100 mg, 1, capsule, By Mouth, 2 times a day, PRN, with plenty of water., # 60 capsule, Refills 2, Tot. Refills 2, Maintenance, for constipation, 10/04/18 11:02:18 EDT, Route to Pharmacy Electronically, NCPDP[facility][id number], [facility] [address] Start Date: 10/04/18 Status: Ordered ibuprofen 600 mg oral tablet 600 mg, 1, tablet, By Mouth, Every 6 hours, do not take within 6 hours of Excedrin Migraine, # 120 tablet, Refills 1, Tot. Refills 1, Maintenance, 02/14/18 15:23:35 EDT, Route to Pharmacy Electronically, NCPDP_[id number], [address] Start Date: 02/14/18 Stop Date: 04/15/18 [...]
--- OUTSIDE RECORDS SUMMARY | 2023-07-15 15:49 | XMS_ITS | Continuity of Care Document ---
Author Name Unknown Organization [facility] Address [address] [place] [address]- Care Team Providers Care Large Animal Husbandry Technician Name Role Phone Jeanne Gandara DO Primary Care Physician [facility] 07/[facility]/21 - 08/23/[address] [address]- Attending Physician: Not on Staff, Attending MD [...] acel(Tdap) 3 05/24/12 Recorded 1Result Comment: [03/30/2017] [facility] [id number] 2Result Comment: [04/27/2017] Reconstituted with sterile diluent [employer] and Dohme filippo Lot [id number] exp. 04/13/2019 3Location History: [facility] Medications atorvastatin 20 mg oral tablet 1 tablet = 20 mg, By Mouth, Daily, # 30 tablet, 0 Refills, Maintenance, 05/05/21 8:50:00 EST, Tablet, [facility] #[id number], 168, cm, 05/01/21 14:15:00 EST, Height, 75, kg, 08/04/20 16:27:00 EST, Dry Weight Start Date: 05/05/21 Stop Date: 06/04/21 Status: Ordered Flonase Sensimist 27.5 mcg/inh nasal spray = 27.5 mcg, Inhalation, Daily, PRN Congestion, Use in each nostril, # 15.8 mL, 0 Refills, Maintenance, 05/18/21 15:29:00 EST, [facility][id number], Partial fill upon patient request if the prescription is for a schedule II opioid drug., 27.5 mc... Start Date: 05/18/21 Status: Ordered omeprazole 20 mg oral enteric coated capsule 1 capsule = 20 mg, By Mouth, Daily, # 30 capsule, 0 Refills, Maintenance, 05/05/21 8:51:00 EST, EC Capsule, [facility] #[id number], Partial fill upon patient request if the [...]
--- OUTSIDE RECORDS SUMMARY | 2023-07-15 15:49 | XMS_ITS | Continuity of Care Document ---
Author Name Unknown Organization [facility] Address [address] [place] [address]- Care Team Providers Care Wood Car Builder Name Role Phone Jeanne Gandara DO Primary Care Physician [facility] Date[facility]s): 03/02/21 - 04/01/21 [facility] [address] [place] [address]- Allergies, Adverse Reactions, Alerts Substance Reaction Severity [...] 1Result Comment: [03/30/2017] [facility] [id number] 2Result Comment: [04/27/2017] Reconstituted with sterile diluent [employer] and [employer] filippo Lot [id number] exp. 04/13/2019 3Location History: [facility] Problem List Condition Effective Dates Status Health [...]
--- OUTSIDE RECORDS SUMMARY | 2023-07-15 15:49 | XMS_ITS | Continuity of Care Document ---
Author Name Unknown Organization [facility] Address [address] [place] [address]- Care Team Providers Care Fitter Armament Name Role Phone Jeanne Gandara DO Primary Care Physician [facility]s): 10/27/21 - 11/26/21 [facility] [address] [place] [address]- Attending Physician: AdmTory sanabria Admitting Physician: Admtr, Tory Referring Physician: Admtr, [...] 3 05/24/12 Recorded 1Result Comment: [03/30/2017] [facility] [id number] 2Result Comment: [04/27/2017] Reconstituted with sterile diluent [employer] and [employer] filippo Lot [id number] exp. 04/13/2019 3Location History: [facility] Medications atorvastatin 20 mg oral tablet 1 tablet = 20 mg, By Mouth, Daily, # 30 tablet, 11 Refills, Maintenance, 09/14/21 9:11:00 EDT, Tablet, [facility] #[id number], 168, cm, 09/14/21 8:33:00 EDT, Height, 75, kg, 08/04/20 16:27:00 EST, Dry Weight Start Date: 09/14/21 Status: Ordered Flonase Sensimist 27.5 mcg/inh nasal spray = 27.5 mcg, Inhalation, Daily, PRN Congestion, Use in each nostril, # 15.8 mL, 0 Refills, Maintenance, 05/18/21 15:29:00 EST, [facility] #[id number], Partial fill upon patient request if the prescription is for a schedule II opioid drug., 27.5 mc... Start Date: 05/18/21 Status: Ordered omeprazole 20 mg oral enteric coated capsule 1 capsule = 20 mg, By Mouth, Daily, # 30 capsule, 2 Refills, Maintenance, 09/14/21 9:11:00 EDT, EC Capsule, [facility] #[id number], Partial fill upon patient request if the [...]
--- OUTSIDE RECORDS SUMMARY | 2023-07-15 15:49 | XMS_ITS | Continuity of Care Document ---
Author Name Unknown Organization [facility] Address [address] [place] [address]- Care Team Providers Care Lockstitch Sleeve Maker Name Role Phone Jeanne Gandara DO Primary Care Physician [facility] 05/04/21 - 06/27/21 [facility] [address] [place] [address]- Attending Physician: Not on Staff, Attending MD [...] 3 05/24/12 Recorded 1Result Comment: [03/30/2017] [facility] [id number] 2Result Comment: [04/27/2017] Reconstituted with sterile diluent [employer] Sharp and Dohme filippo Lot [id number] exp. 04/13/2019 3Location History: [facility] Medications atorvastatin 20 mg oral tablet 1 tablet = 20 mg, By Mouth, Daily, # 30 tablet, 0 Refills, Maintenance, 05/05/21 8:50:00 EST, Tablet, [facility] #[id number], 168, cm, 05/01/21 14:15:00 EST, Height, 75, kg, 08/04/20 16:27:00 EST, Dry Weight Start Date: 05/05/21 Stop Date: 06/04/21 Status: Ordered Flonase Sensimist 27.5 mcg/inh nasal spray = 27.5 mcg, Inhalation, Daily, PRN Congestion, Use in each nostril, # 15.8 mL, 0 Refills, Maintenance, 05/18/21 15:29:00 EST, [facility] #[id number], Partial fill upon patient request if the prescription is for a schedule II opioid drug., 27.5 mc... Start Date: 05/18/21 Status: Ordered omeprazole 20 mg oral enteric coated capsule 1 capsule = 20 mg, By Mouth, Daily, # 30 capsule, 0 Refills, Maintenance, 05/05/21 8:51:00 EST, EC Capsule, [facility] #[id number], Partial fill upon patient request if the [...]
--- OUTSIDE RECORDS SUMMARY | 2023-07-15 15:49 | XMS_ITS | Continuity of Care Document ---
Author Name Unknown Organization [facility] Address [address] [place] [address]- Care Team Providers Care Learning And Development Administrator Name Role Phone Jeanne Gandara DO Primary Care Physician [facility] Date[facility]s): 04/30/21 - 05/30/21 [facility] [address] [place] [address]- Allergies, Adverse Reactions, Alerts Substance Reaction Severity [...] acel(Tdap) 3 05/24/12 Recorded 1Result Comment: [03/30/2017] [facility] [id number] 2Result Comment: [04/27/2017] Reconstituted with sterile diluent [employer] Sharp and [employer] filippo Lot [id number] exp. 04/13/2019 3Location History: [facility] Medications atorvastatin 20 mg oral tablet 1 tablet = 20 mg, By Mouth, Daily, # 30 tablet, 0 Refills, Maintenance, 05/05/21 8:50:00 EST, Tablet, [facility] #[id number], 168, cm, 05/01/21 14:15:00 EST, Height, 75, kg, 08/04/20 16:27:00 EST, Dry Weight Start Date: 05/05/21 Stop Date: 06/04/21 Status: Ordered Flonase Sensimist 27.5 mcg/inh nasal spray = 27.5 mcg, Inhalation, Daily, PRN Congestion, Use in each nostril, # 15.8 mL, 0 Refills, Maintenance, 05/18/21 15:29:00 EST, [facility] #[id number], Partial fill upon patient request if the prescription is for a schedule II opioid drug., 27.5 mc... Start Date: 05/18/21 Status: Ordered omeprazole 20 mg oral enteric coated capsule 1 capsule = 20 mg, By Mouth, Daily, # 30 capsule, 0 Refills, Maintenance, 05/05/21 8:51:00 EST, EC Capsule, [facility] #[id number], Partial fill upon patient request if the [...]
--- OUTSIDE RECORDS SUMMARY | 2023-07-15 15:49 | XMS_ITS | Continuity of Care Document ---
Author Name Unknown Organization [facility] Address [address] [place] [address]- Care Team Providers Care County Court Judge Name Role Phone Jeanne Gandara DO Primary Care Physician [facility] 10/02/19 - 11/02/19 [facility] [address] [place] [address]- [facility] Attending Physician: Emelia HENDERSON, Bj Meeks Allergies, Adverse Reactions, Alerts Substance Reaction Severity [...] 1Result Comment: [04/27/2017] Reconstituted with sterile diluent [employer] Sharp and Dohme filippo Lot [id number] exp. 04/13/2019 2Result Comment: [03/30/2017] [facility][note 2] 60045-469-19 3Location History: [facility] Medications 0.2 % nifedipine hydrophylic ointment 0.2 [...] Refills, Maintenance, Tablet, Route to Pharmacy Electronically, NCPDP_[id number], [address] Start Date: 07/13/18 Status: Ordered Colace sodium 100 mg oral capsule 100 mg, 1, capsule, By Mouth, 2 times a day, PRN, with plenty of water., # 60 capsule, Refills 2, Tot. Refills 2, Maintenance, for constipation, 10/04/18 11:02:18 EDT, Route to Pharmacy Electronically, NCPDP_ID-[id number], [address] Start Date: 10/04/18 Status: Ordered Melatonin 5 mg oral tablet 1 tablet = 5 mg, By Mouth, Daily at bedtime, PRN for insomnia, for 30 days, # 60 tablet, 1 Refills,Acute 12/02/19 10:51:00 EDT, 10/03/19 10:51:00 EDT, Tablet, [facility] #[id number], 171, cm, 03/07/19 11:09:00 EDT, Height Start Date: 10/03/19 Stop Date: 12/02/19 Status: Ordered mirtazapine 30 mg oral tablet 1 tablet = 30 mg, By Mouth, Daily at bedtime, dose increased, # 30 tablet, 2 Refills, Maintenance, 09/19/19 10:52:00 EDT, Tablet, [facility] #[id number], 171, cm, 03/07/19 11:09:00 EDT, Height Start Date: 09/19/19 Status: Ordered nicotine 21 mg/24 hr transdermal film, extended release 1 patch, Topically, Daily, no smoking with patch, # 30 patch, 1 Refills, Maintenance, 09/13/19 13:18:00 EDT, Patch, [facility] #[id number], 1 patch Topically Daily,Instr:no smoking with patch, [...]
--- OUTSIDE RECORDS SUMMARY | 2023-07-15 15:49 | XMS_ITS | Continuity of Care Document ---
Author Name Unknown Organization [facility] Address [address] [place] [address]- Care Team Providers Care Estimating Manager Name Role Phone Jaenne Gandara DO Primary Care Physician [facility]s): 09/26/19 - 10/03/19 [facility] [address] [place] [address] [facility] Attending Physician: Sonali Murphy NP Allergies, Adverse [...] 1Result Comment: [04/27/2017] Reconstituted with sterile diluent [employer] Sharp and Dohme filippo Lot [id number] exp. 04/13/2019 2Result Comment: [03/30/2017] [facility] [place] [id number] 3Location History: [facility] Medications 0.2 % nifedipine hydrophylic [...] Refills, Maintenance, Tablet, Route to Pharmacy Electronically, NCPDP_[id number], [address] Start Date: 07/13/18 Status: Ordered Colace sodium 100 mg oral capsule 100 mg, 1, capsule, By Mouth, 2 times a day, PRN, with plenty of water., # 60 capsule, Refills 2, Tot. Refills 2, Maintenance, for constipation, 10/04/18 11:02:18 EDT, Route to Pharmacy Electronically, NCPDP_[id number], [address] Start Date: 10/04/18 Status: Ordered Melatonin 5 mg oral tablet 1 tablet = 5 mg, By Mouth, Daily at bedtime, PRN for insomnia, for 30 days, # 60 tablet, 1 Refills,Acute 12/02/19 10:51:00 EDT, 10/03/19 10:51:00 EDT, Tablet, [facility][id number], 171, cm, 03/07/19 11:09:00 EDT, Height Start Date: 10/03/19 Stop Date: 12/02/19 Status: Ordered mirtazapine 30 mg oral tablet 1 tablet = 30 mg, By Mouth, Daily at bedtime, dose increased, # 30 tablet, 2 Refills, Maintenance, 09/19/19 10:52:00 EDT, Tablet, [facility] #[id number], 171, cm, 03/07/19 11:09:00 EDT, Height Start Date: 09/19/19 Status: Ordered nicotine 21 mg/24 hr transdermal film, extended release 1 patch, Topically, Daily, no smoking with patch, # 30 patch, 1 Refills, Maintenance, 09/13/19 13:18:00 EDT, Patch, [facility] #[id number], 1 patch Topically Daily,Instr:no smoking with patch, [...]
--- OUTSIDE RECORDS SUMMARY | 2023-07-15 15:49 | XMS_ITS | Continuity of Care Document ---
Author Name Unknown Organization [facility] Address [address] [place] [address]- Care Team Providers Care Recycling Manager Name Role Phone Jeanne Gandara DO Primary Care Physician Encounter [facility] Date(s): 03/04/21 - 05/07/21 [facility] [address] [place] [address]- Attending Physician: Jeanne Gandara DO Admitting Physician: [...] acel(Tdap) 3 05/24/12 Recorded 1Result Comment: [03/30/2017] [facility] [id number] 2Result Comment: [04/27/2017] Reconstituted with sterile diluent [employer] Sharp and Dohme filippo Lot [id number] exp. 04/13/2019 3Location History: [facility] Medications atorvastatin 20 mg oral tablet 1 tablet = 20 mg, By Mouth, Daily, # 30 tablet, 0 Refills, Maintenance, 05/05/21 8:50:00 EST, Tablet, [facility] #[id number], 168, cm, 05/01/21 14:15:00 EST, Height, 75, kg, 08/04/20 16:27:00 EST, Dry Weight Start Date: 05/05/21 Stop Date: 06/04/21 Status: Ordered omeprazole 20 mg oral enteric coated capsule 1 capsule = 20 mg, By Mouth, Daily, # 30 capsule, 0 Refills, Maintenance, 05/05/21 8:51:00 EST, EC Capsule, [facility] #[id number], Partial fill upon patient request if the [...]
--- OUTSIDE RECORDS SUMMARY | 2023-07-15 15:49 | XMS_ITS | Continuity of Care Document ---
Author Name Unknown Organization [facility] Address [address] [place] [address]- Care Team Providers Care Hose Cementer Name Role Phone Jeanne Gandara DO Primary Care Physician [facility]s): 09[facility]13/19 - 09/20/19 [facility] [address] [place] [address]- [facility] Attending Physician: Sonali Murphy NP Allergies, Adverse [...] 1Result Comment: [04/27/2017] Reconstituted with sterile diluent [employer] Sharp and Dohme filippo Lot [id number] exp. 04/13/2019 2Result Comment: [03/30/2017] [facility] 52477-294-06 3Location History: [facility] Medications 0.2 % nifedipine hydrophylic [...] Refills, Maintenance, Tablet, Route to Pharmacy Electronically, NCPDP_[id number], [address] Start Date: 07/13/18 Status: Ordered citalopram 10 mg oral tablet 10 mg, 1, tablet, By Mouth, Daily, take daily for anxiety/ depression, stop Wellbutrin, # 30 tablet, Refills 1, Tot. Refills 1, Maintenance, 09/20/19 15:20:00 EDT, Route to Pharmacy Electronically, [facility] #[id number], 171, cm, 03/07/19 11:09:... Start Date: 09/20/19 Status: Ordered Colace sodium 100 mg oral capsule 100 mg, 1, capsule, By Mouth, 2 times a day, PRN, with plenty of water., # 60 capsule, Refills 2, Tot. Refills 2, Maintenance, for constipation, 10/04/18 11:02:18 EDT, Route to Pharmacy Electronically, NCPDP_[id number], [address] Start Date: 10/04/18 Status: Ordered mirtazapine 30 mg oral tablet 1 tablet = 30 mg, By Mouth, Daily at bedtime, dose increased, # 30 tablet, 2 Refills, Maintenance, 09/19/19 10:52:00 EDT, Tablet, [facility] #[id number], 171, cm, 03/07/19 11:09:00 EDT, Height Start Date: 09/19/19 Status: Ordered nicotine 21 mg/24 hr transdermal film, extended release 1 patch, Topically, Daily, no smoking with patch, # 30 patch, 1 Refills, Maintenance, 09/13/19 13:18:00 EDT, Patch, [facility] #[id number], 1 patch Topically Daily,Instr:no smoking with patch, [...]
--- OUTSIDE RECORDS SUMMARY | 2023-07-15 15:49 | XMS_ITS | Continuity of Care Document ---
Author Name Unknown Organization [facility] Address [address] [place] [address]- Care Team Providers Care Sausage Meat Trimmer Name Role Phone Jeanne Gandara DO Primary Care Physician [facility] Date(s): 09/10/21 - 10/10/21 [facility] [address] [place] [address]- Allergies, Adverse Reactions, Alerts No Known Allergies [...] acel(Tdap) 3 05/24/12 Recorded 1Result Comment: [03/30/2017] [facility][note 3] [id number] 2Result Comment: [04/27/2017] Reconstituted with sterile diluent [employer] filippo Lot [id number] exp. 04/13/2019 3Location History: [facility] Medications atorvastatin 20 mg oral tablet 1 tablet = 20 mg, By Mouth, Daily, # 30 tablet, 11 Refills, Maintenance, 09/14/21 9:11:00 EDT, Tablet, [facility] #[id number], 168, cm, 09/14/21 8:33:00 EDT, Height, 75, kg, 08/04/20 16:27:00 EST, Dry Weight Start Date: 09/14/21 Status: Ordered Flonase Sensimist 27.5 mcg/inh nasal spray = 27.5 mcg, Inhalation, Daily, PRN Congestion, Use in each nostril, # 15.8 mL, 0 Refills, Maintenance, 05/18/21 15:29:00 EST, [facility] #[id number], Partial fill upon patient request if the prescription is for a schedule II opioid drug., 27.5 mc... Start Date: 05/18/21 Status: Ordered omeprazole 20 mg oral enteric coated capsule 1 capsule = 20 mg, By Mouth, Daily, # 30 capsule, 2 Refills, Maintenance, 09/14/21 9:11:00 EDT, EC Capsule, [facility] #[id number], Partial fill upon patient request if the [...]
--- OUTSIDE RECORDS SUMMARY | 2023-07-15 15:49 | XMS_ITS | Continuity of Care Document ---
Author Name Unknown Organization [facility] Address [address] [place] [address]- Care Team Providers Care Ground School Instructor Name Role Phone Jeanne Gandara DO Primary Care Physician Encounter [facility] Date(s): 04/30/21 - 08/20/21 [facility] [address] [place] [address]- Attending Physician: Jeanne Gandara DO Admitting Physician: [...] 3 05/24/12 Recorded 1Result Comment: [03/30/2017] [facility] [id number] 2Result Comment: [04/27/2017] Reconstituted with sterile diluent [employer] Sharp and Dohme filippo Lot [id number] exp. 04/13/2019 3Location History: [facility] Medications atorvastatin 20 mg oral tablet 1 tablet = 20 mg, By Mouth, Daily, # 30 tablet, 0 Refills, Maintenance, 05/05/21 8:50:00 EST, Tablet, [facility] #[id number], 168, cm, 05/01/21 14:15:00 EST, Height, 75, kg, 08/04/20 16:27:00 EST, Dry Weight Start Date: 05/05/21 Stop Date: 06/04/21 Status: Ordered Flonase Sensimist 27.5 mcg/inh nasal spray = 27.5 mcg, Inhalation, Daily, PRN Congestion, Use in each nostril, # 15.8 mL, 0 Refills, Maintenance, 05/18/21 15:29:00 EST, [facility] #[id number], Partial fill upon patient request if the prescription is for a schedule II opioid drug., 27.5 mc... Start Date: 05/18/21 Status: Ordered omeprazole 20 mg oral enteric coated capsule 1 capsule = 20 mg, By Mouth, Daily, # 30 capsule, 0 Refills, Maintenance, 05/05/21 8:51:00 EST, EC Capsule, [facility] #[id number], Partial fill upon patient request if the [...]
== END 2023-07-15 16:07 | disposition home or self-care (01) ==
LOC: HO.HUSH 15:46
PROVIDERS: PCP Internal Medicine; Visit Provider Urology
DX: R31.9 Hematuria, unspecified (principal); F17.200 Nicotine dependence, unspecified, uncomplicated
CPT/HCPCS: 99214

== ENCOUNTER → 2023-07-15 15:46 | Outpatient (BNVA) | payer OTHER, SELFPAY | PROVIDERS: PCP Internal Medicine; Visit Provider Urology ==

== ENCOUNTER 2023-10-10 09:04 | Outpatient (AMB) | payer OTHER, SELFPAY ==
--- NOTE | 2023-10-10 09:20 | MHC.OFFVIS ---
Intake Visit Reasons: cysto confirmed Intake Note: Patient presents today for a CYSTOSCOPY Procedure: Meds: None Allergies to Antibiotic: No Known Allergies Blood Thinner: None Urinalysis test clear for Cysto? YES Disposable Uro-G HD Cystoscope Cannula: Lot: [id number] Exp: 05/05/2026 Financial Accountant Required: No Accompanied by: Self / Same As Patient Allergies No Known Allergies Allergy (Verified 10/10/23 09:21) Medication List - Last Reconciled 10/10/23 by Kaleb Leija MD tamsulosin (Flomax) 0.4 mg PO BEDTIME HPI Comments Details: 10/10/2023--here for office cystoscopy. Cystoscopy findings: prostatic urethra bilobar enlargement, bulbous urethra WNL, [id number]-at-[id number] trabeculations. no suspicious bladder lesions visualized. In discussion with the patient he does admit to hesitancy of urination especially in the morning. Discussed trial of Flomax 0.4 mg daily, will repeat urine cytology.. Patient to call with any problems regarding medication use. Follow-up in 5 months. Review of chart: 07/15/23--Branden is a 52-year-old male who presents today for Telehealth FU due to microscopic hematuria. Video Attempted. He was initially on-05/16/2023--for an evaluation of hematuria. He has a history of cigarette smoking, smokes ? pack a day for about 20 year. Denies dysuria, nocturia 1-2 x. 05/16/2023: Evaluation today--UA--Leukocytes: negative; blood: 1 +. 07/15/23--I have discussed CT urogram results enlarged prostate, estimated volume 50 mL, urine cytology negative Plan-- Follow-up in office cystoscopy. 10/10/23--repeat urine cytology. Recommend nicotine cessation. tamsulosin 0.4 mg daily. Follow-up in 5 months [facility] Surgical History History of surgery on arm Family History Father No problems noted. Mother No problems noted. Social History Alcohol intake: current Alcohol intake frequency: does not drink Patient Tobacco Use Status: Current everyday Tobacco user Review of Systems Const All systems reviewed & are unremarkable except as noted in HPI and below Reports no additional complaints Eyes Reports no additional complaints ENT Reports no additional complaints Card Reports no additional complaints Resp Reports no additional complaints GI Reports no additional complaints Reports as per HPI Musc Reports no additional complaints Skin/Breast Reports system reviewed and no additional complaints, except as documented Neuro Reports no additional complaints Psych Reports no additional complaints Endo Reports no additional complaints Taj/Lymph Reports no additional complaints Aller/Immun Reports no additional complaints Office Procedures Cystoscopy Consent Discussed risk and benefit or proposed procedure with the patient. Information consent for procedure given to the patient. Discussed technical aspects, risks, benefits and alternatives in full. Addressed all of the patient's questions and concerns regarding the procedure. The patient demonstrated knowledge and understanding. They wish to proceed with this procedure. Preparation The patient was prepped in the usual manner. A welder first class was present and in the room. Genitalia was prepped with betadine solution in a sterile manner. Lidocaine Jelly 2% was placed into the urethra and 16Fr flexible Olympus cystoscope was inserted into the meatus after adequate lubrication. Procedure Time out per protocol performed. Bladder Inspection Bladder Inspection: The bladder was inspected in its entirety with utilization retroflexion displaying: Tumor(s): None visualized Trabeculation: Mism-pq-drijxyay Mucosal Erthema: N/A Orifices: normal shape and position Urethra: normal Cystoscopy findings: prostatic urethra bilobar enlargement, bulbous urethra WNL, no suspicious bladder lesions visualized [id number] DISPOSABLE SCOPE URO-G FLEXIBLE SCOPE Procedure code (CPT) selection complete Office Meds lidocaine HCl 2 % mucosal jelly in applicator Performing Provider: Kaleb Leija MD Performing Location[facility] [place] [facility] Administered by: Maksim Liao LPN on 10/10/23 09:36 Dose Route Admin Location Dispensed Lot Number Expiration Date [facility] Nougat Candy Maker Helper 10 mL intra-urethral 20 mL naproxen 500 mg tablet Performing Provider: Kaleb Leija MD Performing Location: [facility] [place] [facility] Administered by: Maksim Liao LPN on 10/10/23 09:36 Dose Route Admin Location Dispensed Lot Number Expiration Date [facility] Nougat C[employer] Maker Helper 500 mg PO 1 tab ciprofloxacin HCl 500 mg tablet Performing Provider: Kaleb Leija MD Performing Location: [facility] [place] [facility] Administered by: Maksim Liao LPN on 10/10/23 09:36 Dose Route Admin Location Dispensed Lot Number Expiration Date [facility] [employer] Hel[employer] 500 mg PO 1 tab Results AMB Urinalysis, Automated UA Leukoctes 15 Maribeth/uL Last Edit by BRANDEN Hatch on 10/10/23 09:30 UA Nitrite Negative Last Edit by BRANDEN Hatch on 10/10/23 09:30 UA Urobilinogen 0.2 mg/dL Last Edit by BRANDEN Hatch on 10/10/23 09:30 UA Protein 0 mg/dL Last Edit by BRANDEN Hatch on 10/10/23 09:30 UA pH 6.0 Last Edit by BRANDEN Hatch on 10/10/23 09:30 UA Blood 80 Justo/uL Last Edit by BRANDEN Hatch on 10/10/23 09:30 2+ Sridhar Ly 10/10/23 09:30 UA Specific [place] 1.025 Last Edit by BRANDEN Hatch on 10/10/23 09:30 UA Ketone Negative Last Edit by BRANDEN Hatch on 10/10/23 09:30 UA Bilirubin 0 mg/dL Last Edit by BRANDEN Hatch on 10/10/23 09:30 UA Glucose 0 mg/dL Last Edit by BRANDEN Hatch on 10/10/23 09:30 Results Reviewed Results Reviewed: Laboratory Last Values Urine pH (Auto) 6.0 10/10/23 09:28 Specific [place] (Auto) 1.025 10/10/23 09:28 Urine Protein (Auto) 0 mg/dL 10/10/23 09:28 Glucose (UA)(Auto) 0 mg/dL 10/10/23 09:28 Urine Ketones (Auto) Negative 10/10/23 09:28 Urine Blood (Auto) 80 Justo/uL 10/10/23 09:28 Urine Nitrite (Auto) Negative 10/10/23 09:28 Urine Bilirubin (Auto) 0 mg/dL 10/10/23 09:28 Urine Urobilinogen (Auto) 0.2 mg/dL 10/10/23 09:28 Leukocyte Esterase (Auto) 15 Maribeth/uL 10/10/23 09:28 Date of Service: 07/04/23 EXAMINATION: CT ABDOMEN AND PELVIS WITH CONTRAST CLINICAL INFORMATION: Hematuria. The exam was ordered as a CT Urogram however the angio technologist perform the scan with IV contrast only due to patient being claustrophobic. COMPARISON: None available. TECHNIQUE: CT of the abdomen and pelvis is performed followed by split bolus contrast-enhanced images using 85 mL Omnipaque 350 contrast. FINDINGS: LUNG BASES: 4 mm smooth solid nodule in the left lower lobe series 2 image 7. No follow-up imaging is recommended as per Fleischner Society guidelines. LIVER, GALLBLADDER, AND BILIARY TREE: The liver is normal in size, shape, and attenuation. No focal hepatic lesion or biliary ductal dilatation is present. The gallbladder is unremarkable with no evidence of radiopaque gallstones, gallbladder wall thickening, or obvious pericholecystic inflammatory changes. PANCREAS: No discrete mass. No ductal dilatation. SPLEEN: Unremarkable. ADRENAL GLANDS: No adrenal mass. KIDNEYS AND URETERS: Evaluation for small calculi is limited due to the lack of an noncontrast acquisition. No sizable calculi are visible. Nephrograms are symmetric. Urinary excretion of contrast is symmetric. No hydroureteronephrosis or ureteral abnormalities. BLADDER: Partially distended. Evaluation for bladder calculi is limited without a noncontrast acquisition however no sizable calculus is visible. No discrete bladder mass. The bladder base is deformed by the enlarged prostate. GASTROINTESTINAL TRACT: The small and large bowel are normal in caliber. The appendix appears normal. No focal bowel wall thickening. ABDOMINAL WALL: Fat-containing direct left inguinal hernia. LYMPH NODES: No lymphadenopathy. VASCULAR: No aortic aneurysm. PELVIC VISCERA: The prostate measures 4.8 x 4.9 x 4.6 cm. Approximately 50 mL. OSSEUS STRUCTURES: Mild degenerative changes in the spine. IMPRESSION: Exam is limited without noncontrast acquisition which was not performed due to patient's claustrophobia. No visible renal, ureteral, or bladder calculi. No suspicious renal mass. No hydroureteronephrosis. Enlarged prostate measuring approximately 50 mL. Collected: 05/16/23 Location: .LAB Received: 12/05/23 Diagnosis Urine: Negative for high-grade urothelial carcinoma. See comment. COMMENT: Cellular specimen consisting of a rare small group of urothelial cells, which are small/medium in size and have variable chromatin. The background has single urothelial cells without atypia, squamous cells, red blood cells, rare acute inflammatory cells and crystals. The differential diagnosis for these types of groups of urothelial cells includes infection, trauma (e.g. stones) and other types of urothelial neoplasms. Assessment & Plan Assessment & Plan (1) Hematuria: Code(s): R31.9 - Hematuria, unspecified Category: Medical (2) Nicotine dependence: Code(s): F17.200 - Nicotine dependence, unspecified, uncomplicated Category: Medical (3) BPH (benign prostatic hyperplasia): Code(s): N40.0 - Benign prostatic hyperplasia without lower urinary tract symptoms Category: Medical (4) Bladder wall thickening: Code(s): N32.89 - Other specified disorders of bladder Category: Medical Plan Repeat urine cytology. tamsulosin 0.4 mg daily. Follow-up in 5 months. Recommended Nicotine cessation Orders: Orders AMB Cystoscopy Today R31.9 - Hematuria, unspecified AMB Urinalysis Automated Today Z13.9 - Encounter for screening, unspecified Medications: New tamsulosin (Flomax) 0.4 mg PO BEDTIME 90 caps 2RF help with urinary flow Patient Instructions: The patient had an opportunity to ask questions regarding treatment plan. The patient expressed understanding and agreement with the above treatment plan. The patient is aware they should contact our office by phone for worsening of their current condition or the appearance of new symptoms. Compliance is encouraged with any medications and followup testing that is ordered. It is a privilege to be allowed the opportunity to participate in the urologic care of your patient. If you have any questions or concerns regarding treatment for the above conditions please do not hesitate to contact me. The office telephone contact is [phone]. This note is constructed in part using voice recognition software. While every effort has been made to ensure accuracy boring machine operator double end errors may have been included. Yours sincerely, Kaleb Leija MD Coding Level of Care Code Est Pt Level 4 (01774) Diagnoses Hematuria R31.9 Nicotine dependence F17.200 BPH (benign prostatic hyperplasia) N40.0 Bladder wall thickening N32.89 CPT Codes Cystoscopy - CPT: 87929-[id number] ([id number])
== END 2023-10-10 10:14 | disposition home or self-care (01) ==
PROVIDERS: PCP Internal Medicine; Visit Provider Urology
DX: R31.9 Hematuria, unspecified (principal); F17.200 Nicotine dependence, unspecified, uncomplicated; N40.0 Benign prostatic hyperplasia without lower urinary tract symptoms; N32.89 Other specified disorders of bladder; Z13.9 Encounter for screening, unspecified
CPT/HCPCS: 52000; 99214

== ENCOUNTER 2023-10-10 09:04 | Outpatient (REF) | payer OTHER, SELFPAY ==
[2023-10-10 18:02] LABS: Urine Cytology See Pathology rpt
== END 2023-10-10 09:05 | disposition home or self-care (01) ==
LOC: HO.LAB 09:04
PROVIDERS: PCP Internal Medicine; Visit Provider Urology
DX: R31.9 Hematuria, unspecified (principal); F17.200 Nicotine dependence, unspecified, uncomplicated; N40.0 Benign prostatic hyperplasia without lower urinary tract symptoms; N32.89 Other specified disorders of bladder
CPT/HCPCS: 52000; 81003; 88112; 99212

== ENCOUNTER 2024-05-07 08:31 | Outpatient (AMB) | payer OTHER, SELFPAY ==
--- NOTE | 2024-05-07 06:15 | A.OFFVIS_ITS ---
Intake Visit Reasons: 5M/Hematuira follow up/PSA Intake Note: Patient is present for 5M HEMATUIRA F/U PSA Urology Medication:NONE Antibiotic Allergy:NONE Blood Thinner:NONE Maintenance Helper Required: No Allergies No Known Allergies Allergy (Verified 05/07/24 08:42) HPI Comments Details: 05/07/24--5 month FU, had work up for hematuria. Last seen 10/10/23--had cystoscopy at that time--findings: prostatic urethra bilobar enlargement, bulbous urethra WNL, xqzt-jn-kvbisaxi trabeculations. no suspicious bladder lesions visualized. discussed repeat urine cytology. Discussed nicotine cessation. prescribed tamsulosin 0.4 mg daily. However he states that the tamsulosin cause dizziness so he stopped the medication. He states he is still having a weak stream. We will trial alfuzosin 10 mg daily to replace the tamsulosin. Patient is to call if he gets side effects of dizziness with alfuzosin. Persistent microscopic hematuria we will monitor kidneys-renal ultrasound ordered. No PSA's in chart. PSA screening discussed. Follow-up in 2 months to discuss results. Review of chart: 10/10/2023--here for office cystoscopy. Cystoscopy findings: prostatic urethra bilobar enlargement, bulbous urethra WNL, gkyz-iw-kmvqqcrc trabeculations. no suspicious bladder lesions visualized. In discussion with the patient he does admit to hesitancy of urination especially in the morning. Discussed trial of Flomax 0.4 mg daily, will repeat urine cytology.. Patient to call with any problems regarding medication use. Follow-up in 5 months. 07/15/23--Branden is a 52-year-old male who presents today for Telehealth FU due to microscopic hematuria. Video Attempted. He was initially on-05/16/2023--for an evaluation of hematuria. He has a history of cigarette smoking, smokes ? pack a day for about 20 year. Denies dysuria, nocturia 1-2 x. 07/15/23--I have discussed CT urogram results enlarged prostate, estimated volume 50 mL, urine cytology negative. Plan-- Follow-up in office cystoscopy. 05/16/2023: Evaluation today--UA--Leukocytes: negative; blood: 1 +. [facility] Surgical History History of surgery on arm Family History Father No problems noted. Mother No problems noted. Social History Alcohol intake: current Alcohol intake frequency: does not drink Patient Tobacco Use Status: Current everyday Tobacco user Review of Systems Const All systems reviewed & are unremarkable except as noted in HPI and below Reports no additional complaints Eyes Reports no additional complaints ENT Reports no additional complaints Card Reports no additional complaints Resp Reports no additional complaints GI Reports no additional complaints Reports as per HPI Musc Reports no additional complaints Skin/Breast Reports system reviewed and no additional complaints, except as documented Neuro Reports no additional complaints Psych Reports no additional complaints Endo Reports no additional complaints Taj/Lymph Reports no additional complaints Aller/Immun Reports no additional complaints Results AMB Urinalysis, Automated UA Leukoctes 0 Maribeth/uL Last Edit by DWIGHT Stuart on 05/07/24 08:53 UA Nitrite Negative Last Edit by DWIGHT Stuart on 05/07/24 08:53 UA Urobilinogen 0.2 mg/dL Last Edit by DWIGHT Stuart on 05/07/24 08:5 3 UA Protein 0 mg/dL Last Edit by DWIGHT Stuart on 05/07/24 08:53 UA pH 6.0 Last Edit by DWIGHT Stuart on 05/07/24 08:53 UA Blood 80 Justo/uL Last Edit by DWIGHT Stuart on 05/07/24 08:53 UA Specific [place] 1.030 Last Edit by DWIGHT Stuart on 05/07/24 08: 53 UA Ketone Negative Last Edit by DWIGHT Stuart on 05/07/24 08:53 UA Bilirubin 0 mg/dL Last Edit by DWIGHT Stuart on 05/07/24 08:53 UA Glucose 0 mg/dL Last Edit by DWIGHT Stuart on 05/07/24 08:53 Results Reviewed Results Reviewed: Laboratory Last Values Urine pH (Auto) 6.0 05/07/24 08:52 Specific [place] (Auto) 1.030 05/07/24 08:52 Urine Protein (Auto) 0 mg/dL 05/07/24 08:52 Glucose (UA)(Auto) 0 mg/dL 05/07/24 08:52 Urine Ketones (Auto) Negative 05/07/24 08:52 Urine Blood (Auto) 80 Justo/uL 05/07/24 08:52 Urine Nitrite (Auto) Negative 05/07/24 08:52 Urine Bilirubin (Auto) 0 mg/dL 05/07/24 08:52 Urine Urobilinogen (Auto) 0.2 mg/dL 05/07/24 08:52 Leukocyte Esterase (Auto) 0 Maribeth/uL 05/07/24 08:52 Date of Service: 07/04/23 EXAMINATION: CT ABDOMEN AND PELVIS WITH CONTRAST CLINICAL INFORMATION: Hematuria. The exam was ordered as a CT Urogram however the tissue technologist perform the scan with IV contrast only due to patient being claustrophobic. COMPARISON: None available. TECHNIQUE: CT of the abdomen and pelvis is performed followed by split bolus contrast-enhanced images using 85 mL Omnipaque 350 contrast. FINDINGS: LUNG BASES: 4 mm smooth solid nodule in the left lower lobe series 2 image 7. No follow-up imaging is recommended as per Fleischner Society guidelines. LIVER, GALLBLADDER, AND BILIARY TREE: The liver is normal in size, shape, and attenuation. No focal hepatic lesion or biliary ductal dilatation is present. The gallbladder is unremarkable with no evidence of radiopaque gallstones, gallbladder wall thickening, or obvious pericholecystic inflammatory changes. PANCREAS: No discrete mass. No ductal dilatation. SPLEEN: Unremarkable. ADRENAL GLANDS: No adrenal mass. KIDNEYS AND URETERS: Evaluation for small calculi is limited due to the lack of an noncontrast acquisition. No sizable calculi are visible. Nephrograms are symmetric. Urinary excretion of contrast is symmetric. No hydroureteronephrosis or ureteral abnormalities. BLADDER: Partially distended. Evaluation for bladder calculi is limited without a noncontrast acquisition however no sizable calculus is visible. No discrete bladder mass. The bladder base is deformed by the enlarged prostate. GASTROINTESTINAL TRACT: The small and large bowel are normal in caliber. The appendix appears normal. No focal bowel wall thickening. ABDOMINAL WALL: Fat-containing direct left inguinal hernia. LYMPH NODES: No lymphadenopathy. VASCULAR: No aortic aneurysm. PELVIC VISCERA: The prostate measures 4.8 x 4.9 x 4.6 cm. Approximately 50 mL. OSSEUS STRUCTURES: Mild degenerative changes in the spine. IMPRESSION: Exam is limited without noncontrast acquisition which was not performed due to patient's claustrophobia. No visible renal, ureteral, or bladder calculi. No suspicious renal mass. No hydroureteronephrosis. Enlarged prostate measuring approximately 50 mL. Collected: 05/16/23 Location: .LAB Received: 05/17/23 Diagnosis Urine: Negative for high-grade urothelial carcinoma. See comment. COMMENT: Cellular specimen consisting of a rare small group of urothelial cells, which are small/medium in size and have variable chromatin. The background has single urothelial cells without atypia, squamous cells, red blood cells, rare acute inflammatory cells and crystals. The differential diagnosis for these types of groups of urothelial cells includes infection, trauma (e.g. stones) and other types of urothelial neoplasms. Assessment & Plan Assessment & Plan (1) Hematuria: Code(s): R31.9 - Hematuria, unspecified Category: Medical (2) Nicotine dependence: Code(s): F17.200 - Nicotine dependence, unspecified, uncomplicated Category: Medical (3) BPH (benign prostatic hyperplasia): Code(s): N40.0 - Benign prostatic hyperplasia without lower urinary tract symptoms Category: Medical (4) Bladder wall thickening: Code(s): N32.89 - Other specified disorders of bladder Category: Medical (5) Weak urinary stream: Code(s): R39.12 - Poor urinary stream Category: Medical Plan Repeat urine cytology. prescribed tamsulosin 0.4 mg daily. However he states that the tamsulosin cause dizziness so he stopped the medication. He states he is still having a weak stream. We will trial alfuzosin 10 mg daily to replace the tamsulosin. Patient is to call if he gets side effects of dizziness with alfuzosin. Persistent microscopic hematuria we will monitor kidneys-renal ultrasound ordered. No PSA's in chart. PSA screening discussed. Follow-up in 2 months to discuss results. Orders: Orders AMB Urinalysis Automated Today Z13.9 - Encounter for screening, unspecified US renal BI Today R31.9 - Hematuria, unspecified Urine Cytology Today N39.0 - Urinary tract infection, site not specified Medications: New alfuzosin ER administer after the same meal each day 10 mg PO DAILY 30 tabs 3RF Patient Instructions: The patient had an opportunity to ask questions regarding treatment plan. The patient expressed understanding and agreement with the above treatment plan. The patient is aware they should contact our office by phone for worsening of their current condition or the appearance of new symptoms. Compliance is encouraged with any medications and followup testing that is ordered. It is a privilege to be allowed the opportunity to participate in the urologic care of your patient. If you have any questions or concerns regarding treatment for the above conditions please do not hesitate to contact me. The office telephone contact is [phone]. This note is constructed in part using voice recognition software. While every effort has been made to ensure accuracy corrections specialist errors may have been included. Yours sincerely, Kaleb Leija MD Coding Level of Care Code Est Pt Level 4 (66583) Diagnoses Hematuria R31.9 Nicotine dependence F17.200 BPH (benign prostatic hyperplasia) N40.0 Bladder wall thickening N32.89 Weak urinary stream R39.12
== END 2024-05-07 09:14 | disposition home or self-care (01) ==
PROVIDERS: PCP Internal Medicine; Visit Provider Urology
DX: R31.9 Hematuria, unspecified (principal); F17.200 Nicotine dependence, unspecified, uncomplicated; N40.0 Benign prostatic hyperplasia without lower urinary tract symptoms; N32.89 Other specified disorders of bladder; R39.12 Poor urinary stream; Z13.9 Encounter for screening, unspecified
CPT/HCPCS: 99214

== ENCOUNTER 2024-05-07 08:31 | Outpatient (REF) | payer OTHER, SELFPAY ==
[2024-05-07 10:38] LABS: Urine Cytology See Pathology rpt
[2024-05-07 11:08] LABS: Blood Urea Nitrogen 10 mg/dL (9-16); Estimated Glomerular Filt Rate > 60
[2024-05-07 11:20] LABS: Prostate Specific Antigen 2.26 ng/mL (<0.05-4.0)
== END 2024-05-07 08:32 | disposition home or self-care (01) ==
LOC: HO.LAB 08:31
PROVIDERS: PCP Internal Medicine; Visit Provider Urology
DX: R31.9 Hematuria, unspecified (principal); N39.0 Urinary tract infection, site not specified; N40.0 Benign prostatic hyperplasia without lower urinary tract symptoms; F17.200 Nicotine dependence, unspecified, uncomplicated; N32.89 Other specified disorders of bladder; R39.12 Poor urinary stream
CPT/HCPCS: 36415; 81003; 82565; 84153; 84520; 88112; 99212

== ENCOUNTER 2024-06-25 12:10 | Outpatient (REF) | payer OTHER, SELFPAY ==
--- NOTE | ~2024-06-25 | US_ITS ---
EXAMINATION: US RETROPERITONEAL LIMITED (RENAL ONLY) CLINICAL INFORMATION: Hematuria, unspecified. COMPARISON: No prior available. Correlation made with CT urogram 07/04/2023. TECHNIQUE: Real-time imaging of the kidneys. FINDINGS: RIGHT KIDNEY: 11.6 x 4.4 x 4.9 cm (SAG x AP x TRV). The kidney is normal in size, contour, and echogenicity. Renal cortical thickness is normal. No calculi or focal parenchymal lesions. No hydronephrosis. LEFT KIDNEY: 12.5 x 5.6 x 5.5 cm (SAG x AP x TRV). The kidney is normal in size, contour, and echogenicity. Renal cortical thickness is normal. No calculi or focal parenchymal lesions. No hydronephrosis. US/US renal BI IMPRESSION: Normal bilateral kidneys. Electronically signed by: Bandar Trujillo MD 06/26/2024 02:43 PM [facility]
== END 2024-06-25 12:11 | disposition home or self-care (01) ==
LOC: HO.US 12:10
PROVIDERS: PCP Internal Medicine; Visit Provider Urology
DX: R31.9 Hematuria, unspecified (principal)
CPT/HCPCS: 76775

== ENCOUNTER → 2024-06-25 12:13 | Outpatient (BNV) | payer OTHER, SELFPAY | PROVIDERS: PCP Internal Medicine; Visit Provider Radiology Diagnostic Radiology | DX: R31.9 Hematuria, unspecified (principal) | CPT/HCPCS: 76775 ==

== ENCOUNTER 2024-07-09 10:25 | Outpatient (AMB) | payer OTHER, SELFPAY ==
--- NOTE | 2024-07-09 10:37 | A.OFFVIS_ITS ---
Intake Visit Reasons: 2m/US/PSA Intake Note: Patient is present for PSA/Ultrasound follow up Urology Med: Alfuzosin Antibiotic Allergy: None Blood Thinner: None PVR: 49ml Heating Technician Required: No Accompanied by: Self / Same As Patient Allergies Tamsulosin Adverse Reaction (Mild, Uncoded 07/09/24 10:53) dizzines Medication List - Last Reconciled 07/09/24 by Kaleb Leija MD alfuzosin ER 10 mg PO DAILY HPI Comments Details: 07/09/24--FU US, PSA---persistent microscopic hematuria. Comorbidity Nicotine dependence. Reviewed results with the patient. He is using the alfuzosin with improvement in urinary flow. PSA - 05/07/24--2.26 Renal US - 06/25/24-- within normal limits, no supicious renal parenchymal lesions. plan cystoscopy bladder biopsies, possible bilateral retrogrades/ureteroscopy 05/07/24--5 month FU, had work up for hematuria. Last seen 10/10/23--had cystoscopy at that time--findings: prostatic urethra bilobar enlargement, bulbous urethra WNL, ycfz-rn-qichlnzd trabeculations. no suspicious bladder lesions visualized. discussed repeat urine cytology. Discussed nicotine cessation. prescribed tamsulosin 0.4 mg daily. However he states that the tamsulosin cause dizziness so he stopped the medication. He states he is still having a weak stream. We will trial alfuzosin 10 mg daily to replace the tamsulosin. Patient is to call if he gets side effects of dizziness with alfuzosin. Persistent microscopic hematuria we will monitor kidneys-renal ultrasound ordered. No PSA's in chart. PSA screening discussed. Follow-up in 2 months to discuss results. 10/10/2023--here for office cystoscopy. Cystoscopy findings: prostatic urethra bilobar enlargement, bulbous urethra WNL, tegk-ta-fzxraxxm trabeculations. no suspicious bladder lesions visualized. In discussion with the patient he does admit to hesitancy of urination especially in the morning. Discussed trial of Flomax 0.4 mg daily, will repeat urine cytology.. Patient to call with any problems regarding medication use. Follow-up in 5 months. 07/15/23--Branden is a 52-year-old male who presents today for Telehealth FU due to microscopic hematuria. Video Attempted. He was initially on-05/16/2023--for an evaluation of hematuria. He has a history of cigarette smoking, smokes ? pack a day for about 20 year. Denies dysuria, nocturia 1-2 x. 07/15/23--I have discussed CT urogram results enlarged prostate, estimated volume 50 mL, urine cytology negative. Plan-- Follow-up in office cystoscopy. 05/16/2023: Evaluation today--UA--Leukocytes: negative; blood: 1 +. [facility] Surgical History History of surgery on arm Family History Father No problems noted. Mother No problems noted. Social History Alcohol intake: current Alcohol intake frequency: does not drink Patient Tobacco Use Status: Current everyday Tobacco user Review of Systems Const All systems reviewed & are unremarkable except as noted in HPI and below Reports no additional complaints Eyes Reports no additional complaints ENT Reports no additional complaints Card Reports no additional complaints Resp Reports no additional complaints GI Reports no additional complaints Reports as per HPI Musc Reports no additional complaints Skin/Breast Reports system reviewed and no additional complaints, except as documented Neuro Reports no additional complaints Psych Reports no additional complaints Endo Reports no additional complaints Taj/Lymph Reports no additional complaints Aller/Immun Reports no additional complaints Office Procedures Post Void Residual Post Residual Void Post Void Residual (PVR): 49 [id number] Void Residual by ultrasound Results AMB Urinalysis, Automated UA Leukoctes 0 Maribeth/uL Last Edit by BRANDEN Blackburn on 07/09/24 10:54 UA Nitrite Negative Last Edit by BRANDEN Blackburn on 07/09/24 10:54 UA Urobilinogen 0.2 mg/dL Last Edit by BRANDEN Blackburn on 07/09/24 10:5 4 UA Protein 15 mg/dL Last Edit by BRANDEN Blackburn on 07/09/24 10:54 UA pH 6.0 Last Edit by BRANDEN Blackburn on 07/09/24 10:54 UA Blood 80 Justo/uL Last Edit by BRANDEN Blackburn on 07/09/24 10:54 UA Specific [place] 1.030 Last Edit by YRN BlackburnA on 07/09/24 10: 54 UA Ketone Negative Last Edit by BRANDEN Blackburn on 07/09/24 10:54 UA Bilirubin 0 mg/dL Last Edit by Clotilde Collado, A on 07/09/24 10:54 UA Glucose 0 mg/dL Last Edit by YRN BlackburnA on 07/09/24 10:54 Results Reviewed Results Reviewed: Laboratory Last Values Urine pH (Auto) 6.0 07/09/24 10:53 Specific [place] (Auto) 1.030 07/09/24 10:53 Urine Protein (Auto) 15 mg/dL 07/09/24 10:53 Glucose (UA)(Auto) 0 mg/dL 07/09/24 10:53 Urine Ketones (Auto) Negative 07/09/24 10:53 Urine Blood (Auto) 80 Justo/uL 07/09/24 10:53 Urine Nitrite (Auto) Negative 07/09/24 10:53 Urine Bilirubin (Auto) 0 mg/dL 07/09/24 10:53 Urine Urobilinogen (Auto) 0.2 mg/dL 07/09/24 10:53 Leukocyte Esterase (Auto) 0 Maribeth/uL 07/09/24 10:53 Date of Service: 06/25/24 US RETROPERITONEAL LIMITED (RENAL ONLY) CLINICAL INFORMATION: Hematuria, unspecified. COMPARISON: No prior available. Correlation made with CT urogram 07/04/2023. TECHNIQUE: Real-time imaging of the kidneys. FINDINGS: RIGHT KIDNEY: 11.6 x 4.4 x 4.9 cm (SAG x AP x TRV). The kidney is normal in size, contour, and echogenicity. Renal cortical thickness is normal. No calculi or focal parenchymal lesions. No hydronephrosis. LEFT KIDNEY: 12.5 x 5.6 x 5.5 cm (SAG x AP x TRV). The kidney is normal in size, contour, and echogenicity. Renal cortical thickness is normal. No calculi or focal parenchymal lesions. No hydronephrosis. IMPRESSION: Normal bilateral kidneys. Date of Service: 07/04/23 EXAMINATION: CT ABDOMEN AND PELVIS WITH CONTRAST CLINICAL INFORMATION: Hematuria. The exam was ordered as a CT Urogram however the dairy technologist perform the scan with IV contrast only due to patient being claustrophobic. COMPARISON: None available. TECHNIQUE: CT of the abdomen and pelvis is performed followed by split bolus contrast-enhanced images using 85 mL Omnipaque 350 contrast. FINDINGS: LUNG BASES: 4 mm smooth solid nodule in the left lower lobe series 2 image 7. No follow-up imaging is recommended as per Fleischner Society guidelines. LIVER, GALLBLADDER, AND BILIARY TREE: The liver is normal in size, shape, and attenuation. No focal hepatic lesion or biliary ductal dilatation is present. The gallbladder is unremarkable with no evidence of radiopaque gallstones, gallbladder wall thickening, or obvious pericholecystic inflammatory changes. PANCREAS: No discrete mass. No ductal dilatation. SPLEEN: Unremarkable. ADRENAL GLANDS: No adrenal mass. KIDNEYS AND URETERS: Evaluation for small calculi is limited due to the lack of an noncontrast acquisition. No sizable calculi are visible. Nephrograms are symmetric. Urinary excretion of contrast is symmetric. No hydroureteronephrosis or ureteral abnormalities. BLADDER: Partially distended. Evaluation for bladder calculi is limited without a noncontrast acquisition however no sizable calculus is visible. No discrete bladder mass. The bladder base is deformed by the enlarged prostate. GASTROINTESTINAL TRACT: The small and large bowel are normal in caliber. The appendix appears normal. No focal bowel wall thickening. ABDOMINAL WALL: Fat-containing direct left inguinal hernia. LYMPH NODES: No lymphadenopathy. VASCULAR: No aortic aneurysm. PELVIC VISCERA: The prostate measures 4.8 x 4.9 x 4.6 cm. Approximately 50 mL. OSSEUS STRUCTURES: Mild degenerative changes in the spine. IMPRESSION: Exam is limited without noncontrast acquisition which was not performed due to patient's claustrophobia. No visible renal, ureteral, or bladder calculi. No suspicious renal mass. No hydroureteronephrosis. Enlarged prostate measuring approximately 50 mL. --------- Urine cytology--Collected: 05/07/24 Location: [email or web address] Received: 05/08/24 Diagnosis Urine: Atypical urothelial cells. See comment. COMMENT: Cellular specimen consisting of a rare small group of atypical ur othelial cells, which are small/ medium in size, have variable dark chromatin and increased nuclear/cytoplasmic ratio. The background has more innocuous appearing single urothelial cells, squamous cells, few lymphocytes and red blood cells. Clinical History Urinary tract infection, site not specified Material Received Urine Gross Description Received is 58 cc of clear yellow fluid from which a ThinPrep slide is prepared. Urine cytology--Collected: 10/10/23 Location: [email or web address] Received: 10/11/23 Diagnosis Urine: Few atypical urothelial cells. COMMENT: Examination of a monolayer preparation slide shows benign urothelial cells, benign squamous cells, and a single group of atypical urothelial cells with moderately increased nuclear cytoplasmic ratios meeting the criteria for atypia. There are also casts, cellular debris, scattered inflammatory cells and occasional red blood cells present. Clinical History Nicotine dependence, hematuria Material Received Urine Gross Description Received are 48 cc of clear yellow fluid from which a ThinPrep slide is prepared. Collected: 05/16/23 Location: [facility] Received: 05/17/23 Diagnosis Urine: Negative for high-grade urothelial carcinoma. See comment. COMMENT: Cellular specimen consisting of a rare small group of urothelial cells, which are small/medium in size and have variable chromatin. The background has single urothelial cells without atypia, squamous cells, red blood cells, rare acute inflammatory cells and crystals. The differential diagnosis for these types of groups of urothelial cells includes infection, trauma (e.g. stones) and other types of urothelial neoplasms. Assessment & Plan Assessment & Plan (1) Hematuria: Code(s): R31.9 - Hematuria, unspecified Category: Medical (2) Nicotine dependence: Code(s): F17.200 - Nicotine dependence, unspecified, uncomplicated Category: Medical (3) BPH (benign prostatic hyperplasia): Code(s): N40.0 - Benign prostatic hyperplasia without lower urinary tract symptoms Category: Medical (4) Bladder wall thickening: Code(s): N32.89 - Other specified disorders of bladder Category: Medical Plan BPH- patient is tolerating alfuzosin. PSA - 05/07/24--2.26 Persistent hematuria, atypical cytology - renal US- 06/25/24-- WNL. Discussed outpatient cysto, bladder bx, possible bilateral retrogrades/ureteroscopy Orders: Orders AMB Post Void Residual by ultrasound Today R39.12 - Poor urinary stream AMB Urinalysis Automated Today Z13.9 - Encounter for screening, unspecified FISH Bladder Cancer Today R31.9 - Hematuria, unspecified Patient Instructions: The patient had an opportunity to ask questions regarding treatment plan. The patient expressed understanding and agreement with the above treatment plan. The patient is aware they should contact our office by phone for worsening of their current condition or the appearance of new symptoms. Compliance is encouraged with any medications and followup testing that is ordered. It is a privilege to be allowed the opportunity to participate in the urologic care of your patient. If you have any questions or concerns regarding treatment for the above conditions please do not hesitate to contact me. The office telephone contact is [phone]. This note is constructed in part using voice recognition software. While every effort has been made to ensure accuracy all source intelligence analyst errors may have been included. Yours sincerely, Kaleb Leija MD Coding Level of Care Code Est Pt Level 4 (71019) Diagnoses Hematuria R31.9 Nicotine dependence F17.200 BPH (benign prostatic hyperplasia) N40.0 Bladder wall thickening N32.89 CPT Codes Post Residual Void - PVR CPT Code: 65644-Ncwi Void Residual by ultrasound ([id number])
--- OUTSIDE RECORDS SUMMARY | 2024-07-09 15:06 | XMS_ITS | Clinical Summary ---
Author Organization [facility] Address [address] [place] [address] Care Team Providers [employer] Executive Director Name Role Phone Lou Vargas MD Primary Care Provider [phone] Source Comments PLEASE NOTE, if this patient is a minor, it may be UNLAWFUL to discuss sensitive information that is contained in these records (such as FAMILY PLANNING, MENTAL HEALTH or SUBSTANCE ABUSE) with the minor patient's parent or other person without the patient's specific authorization.[facility] Allergies No known active allergies Medications dicyclomine (BENTYL) 10 mg capsuleIndications :Abdominal cramps Take 1 Cap by mouth 3 (three) times daily as needed (abdominal cramps). 30 Cap 0 3 Active bismuth subsalicylate (PEPTO BISMOL) 262 mg/15 mL suspensionIndicati ons:Abdominal cramps Take 30 mL by mouth 3 (three) times daily as needed (diarrhea). 1 Bottle 1 3 Active dicyclomine (BENTYL) 10 mg capsuleIndications :Abdominal cramps Take 1 Cap by mouth 3 (three) times daily as needed (cramps). 30 Cap 0 3 Active Bismuth Subsalicylate (PEPTO-BISMOL) 262 mg TabIndications:Jolie rrhea in adult patient Take 2 Tabs by mouth 2 to 3 (two to three) times daily as needed (nausea/loose stool). 30 Tab 1 3 Active metroNIDAZOLE (FLAGYL) 500 mg tabletIndications: Diarrhea in adult patient Take 1 Tab by mouth 2 (two) times daily. Avoid alcohol while taking and for 24 hours following last dose. 14 Tab 0 3 Active Active Problems Problem Noted Date Diagnosed Date Epigastric abdominal pain,egd- normal.gerd 07/16 Enteritis 02/01/2013 Abdominal cramps 01/31/2013 Social History Tobacco Use Types Packs/Day Years Used Date Smoking Tobacco: Every Day Cigarettes 0.8 15 Alcohol Use Standard Drinks/Week Comments No 0 (1 standard drink = 0.6 oz pur e alcohol) Sex and Gender Information Value Date Recorded Sex Assigned at Not on file Legal Sex Male 11:36 AM PDT Gender Identity Not on file Sexual Orientation Not on file Last Filed Vital Signs Vital Sign Reading Time Taken Comments Blood Pressure 110/70 02/01/2013 11:14 AM EDT Pulse 76 02/01/2013 11:14 AM EDT Temperature 37.3 ??C (99.1 ??F) 02/01/2013 11:14 AM E DT Respiratory Rate 19 02/01/2013 11:14 AM EDT Oxygen Saturation - - Inhaled Oxygen Concentration - - Weight 77.6 kg (171 lb) 02/01/2013 11:14 AM EDT Height - - Body Mass Index - - Plan of Treatment Not on file Insurance [facility] [employer] PLAN Member Subscriber Plan / Payer (Ef fective 2013-Present) Name:Branden Alegria Relation to Subscriber:Self Name:Branden Alegria Payer ID:[id number] Group ID:[id number] Type:Medicaid Address: [facility] [address] [place] [address] Care Teams Nurses[employer] Association Executive Director Relationship Specialty Start Date End Date Lou Vargas MD [address] [place] [id number] PCP - General Internal Medicine 01/31/13
--- OUTSIDE RECORDS SUMMARY | 2024-07-09 15:06 | XMS_ITS | Data Portability ---
Author Organization [place] - [facility], Allergy Address [address] [place] [phone] Care Team Providers Care Faculty Criminal Justice Name Role Phone LIVE ADAMS Primary Care Provider Assessment Encounter Date Assessment Date Assessment LastModified by Organization Details LastModified Time 03/12/2024 03/12/2024 53 year old male presents to the office for evaluation of his left ear. There is effusion on exam. He has flat tympanometry. There is a conductive component to his left sided hearing loss. I discussed with the patient that it is considered normal to have fluid in the ears for up to three months following an upper respiratory infection. I have instructed him to use Afrin for the next three days but not to exceed three days. I have issued him a prescription for Flonase. He has tried gentle autoinsufflation several times daily. I would like to see him back in 3 months. If fluid persists at his follow up in 3 months we will perform flexible laryngoscopy to ensure there is no nasopharyngeal carcinoma causing this unilateral effusion. Right ear was meticulously cleaned bilaterally today with fine pics and suction. Patient is encouraged to avoid Q-tips in his ears relative to packing the wax in tighter. He typically follows up every six months for ear cleaning. [email or web address] Not available 03/12/2024 16:45:39 Plan of Treatment Reminders Order Date Submit Date Provider Last Modified By Organization Details Last Modified Time Details Appointments None recorded. Lab None recorded. Referral None recorded. Procedures None recorded. Surgeries None recorded. Imaging None recorded. Medication Orders Flonase Allergy Relief 50 mcg/actua tion nasal spray,venkatesh pension [employer] #[id number], [address] [place], [place], [phone], 4 16:37:09 Patient TargetsNo targets recorded. Patient InstructionsNo instructions recorded. Reason for Referral None Reported. Results Created Date Observation Date Name Description Value Unit Range Abnormal Flag Note LastModifiedBy Organization Detail LastModifiedTime 03/19/20 24 audio gram No observ ation record ed. BARCODE Not Available 2023 10:34:09 Result Notes None recorded. Problems Name Problem SNOMED Code Status Onset Date Resolution Date Notes Provider Name and Address Organization Details Recorded Time Sensorin eural hearing loss 76481777 Active 2013 Sensorin eural hearing loss, unspecif ied; Note: Date Diagnose d: 03/28/20 14 1:45 PM (389.10) Not Available [facility] 4 03:08:04 Impacted cerumen in right ear 18268944514 06635 Active 2022 Impacted cerumen, right ear; Note: Date Diagnose d: 3 11:22 AM (H61.21) Not Available [facility] 4 03:08:03 Otorrhea of right ear 17633759956 68601 Active 2022 Otorrhea , right ear; Note: Date Diagnose d: 3 11:22 AM (H92.11) Otorrh ea, right ear; Note: Date Diagnose d: 04/04/20 20 11:01 AM (H92.11) ; Start Date : 04/04/20 Not Available [facility] 4 03:08:04 Impacted cerumen 31828910 Completed 201301/13/2024 Impacted cerumen; [facility] CMS Risk: minimal risk CMS Treatmen t: self-berry ited or minor problem Note: Date Diagnose d: 4 12:25 PM (380.4) Not Available [facility] 4 03:08:05 Skin finding 688557304 Active 2016 Other skin changes; Note: Date Diagnose d: 07/19/2016 2:57 PM (R23.8) Not Available [facility] 4 03:08:03 Impacted cerumen in left ear 68421783571 20310 Active 2016 Impacted cerumen, left ear; Note: Date Diagnose d: 07/19/2016 2:56 PM (H61.22) Not Available [facility] 4 03:08:04 Infectiv e otitis externa 83163817 Completed 201301/13/2024 Otitis externa; infectiv e; Location : [place] CMS Risk: minimal risk [facility] Treatmen t: self-berry ited or minor problem Note: Date Diagnose d: 4 12:25 PM (380.10) Not Available [facility] 4 03:08:05 Sensorin eural hearing loss of bilatera l ears 845571232 Active 2022 Sensorin eural hearing loss, bilatera l; Note: Date Diagnose d: 3 12:11 PM (H90.3) Not Available [facility] 4 03:08:04 Impacted cerumen of bilatera l ears 85182975225 58362 Active 2023 Impacted cerumen, bilatera l; Note: Date Diagnose d: 4 4:34 PM (H61.23) Not Available [facility] 4 03:08:03 Itching of skin 238890521 Active 2023 Other pruritus ; Note: Date Diagnose d: 4 10:25 AM (L29.8) Not Available [facility] 4 03:08:05 Conducti ve hearing loss 41703474 Active [address]IR [address] [place] [address], [place], [address] , [place] - [facility] 4 16:29:25 Conducti ve hearing loss 03324095 Active 2023 CHAD SINCLAIR [address] [address], [place], [address] , [place] - [facility] 4 16:31:04 Middle ear effusion 8756217562 Active 2023 SHERRY BECKFORD PA-C [address] [address], [place], [address] , [facility] 4 16:36:40 Problem Notes None recorded. Procedures Surgical History Date Name Laterality Status Provider Name and Address Organization Details Recorded Time 4 Comp Audio with Tymps (16746 & 64261) completed CHAD SINCLAIR [address] [facility],[place] [address], [place], [address], [facility] 03/12/2024 16:25:33 4 Cerumen removal without microscope right completed SHERRY BECKOFRD PA-C [address] [facility],[place] [address], [place], [address], [facility] 03/12/2024 16:42:34 Imaging Results Imaging Date Name Status LastModified by Organiz ation Details LastModified Time 03/19/2024 audiogram completed BAR[facility] Information no t available 03/19/2024 10:34:09 Procedure Notes None recorded. Medical Equipment None Reported. Allergies No known drug allergies Medications Name Sig Start Date Stop Date Status Note LastModified by Organization Details LastModified Time atorvasta tin 40 mg tablet TAKE 1 TABLET BY MOUTH DAILY active Not Available Not Available No t Available atorvasta tin 20 mg tablet TAKE 1 TABLET BY MOUTH DAILY 03/12 completed Not Available Not Available Not Available meloxicam 15 mg tablet active Not Available Not Available Not Available sertralin e 100 mg tablet 04/04 completed Medicati on ID: [id number] D uration Value: 30 Brand Name: sertrali ne Send Method: E-Prescr ibed Sub s Allowed: subs OK Speci al Instruct ion: TK 1 T PO D Medica tionGene ricName: sertrali ne Not Available Not Available Not Available topiramat e 25 mg tablet 04/04 completed Medicati on ID: [id number] D uration Value: 30 Brand Name: topirama te Send Method: E-Prescr ibed Sub s Allowed: subs OK Medic ationGen ericName : topirama te Not Available Not Available Not Available Ciloxan 0.3 % eye drops 03/12 completed Medicati on ID: [id number] D uration Value: 7 Prescri bed By Name: ROSALVA Guadalupe nd Name: Ciloxan Send Method: E-Prescr ibed Sub s Allowed: subs OK Speci al Instruct ion: Instill 4 drops twice a day into the affected ear Medi cationGe nericNam e: Ciloxan Not Available Not Available Not Available tamsulosi n 0.4 mg capsule TAKE ONE CAPSULE BY MOUTH EVERY NIGHT AT BEDTIME 03/12 completed Not Available Not Available Not Available prednisol one sodium phosphate 1 % eye drops Apply 2 drop once a day as needed 03/12 completed Medicati on ID: [id number] D uration Value: 14 Brand Name: predniso lone sodium phosphat e Send Method: E-Prescr ibed Sub s Allowed: subs OK Medic ationGen ericName : predniso lone sodium phosphat e Not Available Not Available Not Available mirtazapi ne 30 mg tablet 03/12 completed Medicati on ID: [id number] B rand Name: mirtazap ine Send Method: E-Prescr ibed Sub s Allowed: subs OK Speci al Instruct ion: TK 1 T PO HS Medic ationGen ericName : mirtazap ine Not Available Not Available Not Available neomycin- polymyxin -dexameth 3.5 mg/mL-10, 000 unit/mL-0 .1% eye drops SHAKE LIQUID AND INSTILL 1 DROP IN RIGHT EYE THREE TIMES DAILY 03/12 completed Not Available Not Available Not Available omeprazol e 20 mg capsule,d elayed release 04/04 completed Medicati on ID: [id number] Dura tion Value: 30 Brand Name: omeprazo le Send Method: E-Prescr ibed Sub s Allowed: subs OK Speci al Instruct ion: TK 1 C PO QD Medic ationGen ericName : omeprazo le Not Available Not Available Not Available ibuprofen 600 mg tablet 04/04 completed Medicati on ID: 614 Dura tion Value: 30 Brand Name: ibuprofe n Send Method: E-Prescr ibed Sub s Allowed: subs OK Speci al Instruct ion: TK 1 T PO Q 6 H WITH FOOD OR MILK Med icationG enericNa me: ibuprofe n Not Available Not Available Not Available fluticaso ne propionat e 50 mcg/actua tion nasal spray,venkatesh pension SHAKE LIQUID AND USE 2 SPRAYS IN EACH NOSTRIL EVERY DAY active Not Available Not Available No t Available loratadin e 10 mg tablet active Not Available Not Available Not Available TobraDex 0.3 %-0.1 % eye drops,venkatesh pension 03/12 completed Medicati on ID: [id number] D uration Value: 14 Prescri bed By Name: ROSALVA Rodriguez nd Name: TobraDex Send Method: E-Prescr ibed Sub s Allowed: subs OK Speci al Instruct ion: Instill 4 drops in the affected ear twice a day for 14 days Med icationG enericNa me: TobraDex Not Available Not Available Not Available Ciprodex 0.3 %-0.1 % ear drops,venkatesh pension Apply 4 drop twice a day 03/12 completed Medicati on ID: [id number] D uration Value: 14 Brand Name: Ciprodex Send Method: E-Prescr ibed Sub s Allowed: subs OK Speci al Instruct ion: right ear Medi cationGe nericNam e: Ciprodex Not Available Not Available Not Available prednisol one acetate (PF) 1 % eye drops,venkatesh pension Apply 2 drop once a day 03/12 completed Medicati on ID: [id number] D uration Value: 7 Brand Name: predniso lone acetate (PF) Sen d Method: E-Prescr ibed Sub s Allowed: subs OK Speci al Instruct ion: into affected ear as needed for itching Medicati onGeneri cName: predniso lone acetate (PF) Not Available Not Available Not Available Vitals None Recorded Social History None recorded. Functional Status None recorded. Mental Status None recorded. Family History Nothing Reported. Medical History Condition Response High Cholesterol Y Past Encounters Encounter ID Performer Location Encounter Start Date Encounter Closed Date Diagnosis/Indication Diagnosis SNOMED-CT Code Diagnosis ICD10 Code Diagnosis Note [id number] JOSHUA BENAVIDES MD [facility] [address] [place] [address] 03/12/2024 15:17:06 03/12/2024 16:41:14 Conductive hearing loss 22431768 H90.A12 Audiologic al evaluation results:Ri ght ear:{{Norm al sloping* M ild Modera te Moderat juarez-severe Severe Pr ofound Nor mal auditory thresholds }} to {{mild* mo derate mod erately-se devorah sever e profound with}} {{sensorin eural hearing loss with* cond uctive hearing loss with mixed hearing loss with}} {{excellen t* good fa ir poor no t measurable }} word recognitio n.Left ear:{{Norm al sloping* M ild Modera te Moderat juarez-severe Severe Pr ofound Nor mal auditory thresholds }} to {{mild mod erate mode rately-sev ere severe * profound with}} {{sensorin eural hearing loss with condu ctive hearing loss with* mixe d hearing loss with}} {{excellen t* good fa ir poor no t measurable }} word recognitio n.Tympanom etry:Right Ear:{{Type A* Type As Type Ad Type C Type C, shallow & rounded Ty pe B Type B with large volume Cou ld not maintain a hermetic seal}}Left Ear:{{Type A Type As Type Ad Type C Type C, shallow & rounded Ty pe B* Type B with large volume Cou ld not maintain a hermetic seal}} Sensorineu ral hearing loss 81480334 H90.A21 Impacted c erumen in right ear 9464649418 709916 H61.21 Middle ear effusion 1004 973833 H74.8X9 Health Concerns Section Related Observation LastModified by Organization Detai ls LastModified Time None Recorded Concern Status LastModified by Organization Details LastModified Time None Recorded Advance Directives Directive None Recorded Payers Encounter Date Sequence Insurance Name Policy Number Policy Hollins Covered Member ID Hollins Member ID Guarantor Name 03/12/[address] [place] [address] [id number] Branden Alegria [id number] Branden Alegria Notes Date Note Type Note Provider Name and Address Organization Details Recorded Time 03/12/2024 text/html 53 year old male presents to the office for evaluation of his left ear. He reports that he recently had tonsillitis and was prescribed Amoxicillin. Since that time he has had the sensation that there is fluid in the left ear. JOSHUA BENAVIDES MD [address] [place] [address], [place], [address], [facility] - [facility] 03/13/2024 08:13:54
== END 2024-07-09 11:22 | disposition home or self-care (01) ==
PROVIDERS: PCP Internal Medicine; Visit Provider Urology
DX: R31.9 Hematuria, unspecified (principal); F17.200 Nicotine dependence, unspecified, uncomplicated; N40.0 Benign prostatic hyperplasia without lower urinary tract symptoms; N32.89 Other specified disorders of bladder; Z13.9 Encounter for screening, unspecified
CPT/HCPCS: 99214

== ENCOUNTER 2024-07-09 10:25 | Outpatient (REF) | payer OTHER, SELFPAY ==
--- OUTSIDE RECORDS SUMMARY | 2024-07-09 15:47 | XMS_ITS | Clinical Summary ---
Author Organization [facility] Address [address] [place] [address] Care Team Providers Care Marketing Teacher Name Role Phone Lou Vargas MD Primary Care Provider [phone] Source Comments PLEASE NOTE, if this patient [...] Plan of Treatment Not on file Insurance [facility] [email or web address] PLAN Member Subscriber Plan / Payer (Ef fective 2013-Present) Name:Branden Alegria Relation to Subscriber:Self Name:Branden Alegria Payer ID:[id number] Group ID:[id number] Type:Medicaid Address: [facility] [address] [place] [address] Care Teams Marketing Teacher Relationship Specialty Start Date End Date Lou Vargas MD [address] [place] [id number] PCP - General Internal Medicine 01/31/13
== END 2024-07-09 10:26 | disposition home or self-care (01) ==
LOC: HO.LAB 10:25
PROVIDERS: PCP Internal Medicine; Visit Provider Urology
DX: R31.29 Other microscopic hematuria (principal); N40.0 Benign prostatic hyperplasia without lower urinary tract symptoms; N32.89 Other specified disorders of bladder; R39.12 Poor urinary stream; F17.200 Nicotine dependence, unspecified, uncomplicated
CPT/HCPCS: 51798; 81003; 99212

== ENCOUNTER 2024-07-17 09:57 | Day surgery (SDC) | payer OTHER, SELFPAY ==
--- NOTE | 2024-07-16 12:03 | P.CONAN_ITS ---
Documented by User: Bekah Renteria NP 07/16/24 12:03 HPI - Anesthesia Eval Consult details Narrative: 53yo M for Bilateral Cystoscopy with Bladder Biopsy,possible Retrograde Ureteroscopy PMFSH Active Problems Active Problems: All Active Problems Weak urinary stream (Acute) Bladder wall thickening (Acute) BPH (benign prostatic hyperplasia) (Acute) Nicotine dependence (Acute) Hematuria (Acute) Family History Family History Father No problems noted. Mother No problems noted. Surgical History Surgical History History of surgery on arm Social History Social History Are you a primary behavioral health care coordinator to a significant other at home: No Do you presently have visiting nurse or other home services: No Alcohol intake: current Alcohol intake frequency: does not drink Patient Tobacco Use Status: Current everyday Tobacco user Cigarette Packs Per Day: 1 Cigarettes Per Day: 20.0 Smoked in Last 30 Days: Yes Use of substances other than those prescribed or required for medical reasons: No Have you been hit, kicked, punched, or otherwise hurt by someone within the past year? If so, by whom?: No Are you DNR?: No Advance Directives: No Advance Directives Information Provided: Yes Advance Directives on File: No Recently lost weight without trying: No Nutrition Risks: No Nutritional Risk Poor oral hygiene: No Meds Allergies Allergy/AdvReac Type Severity Reaction Status Date / Time Tamsulosin AdvReac Mild dizzines Uncoded 07/09/24 10:53 Home Medications ?Medication ?Instructions ?Recorded ?Confirmed ?Last Taken ?Type atorvastatin 40 mg tablet 40 mg PO DAILY 07/17/24 07/17/24 07/16/24 History Assessment and Plan Assessment Anesthesia Assessment: Chart Reviewed Documented by User: Juanita Freitas MD 07/17/24 12:28 HPI - Anesthesia Eval Consult details Narrative: 53yo M for Cystoscopy with Bladder Biopsy,possible Bilateral ureteroscopy, Retrograde PMFSH Active Problems Active Problems: All Active Problems Weak urinary stream (Acute) Bladder wall thickening (Acute) BPH (benign prostatic hyperplasia) (Acute) Nicotine dependence (Acute). Last cigarette 2 days ago Hematuria (Acute) Family History Family History Father No problems noted. Mother No problems noted. Family history of problems with anesthesia: No Surgical History Surgical History History of surgery on arm History of Problems with Anesthesia: No Social History Social History Are you a primary behavioral health care coordinator to a significant other at home: No Do you presently have visiting nurse or other home services: No Alcohol intake: current Alcohol intake frequency: does not drink Patient Tobacco Use Status: Current everyday Tobacco user Cigarette Packs Per Day: 1 Cigarettes Per Day: 20.0 Smoked in Last 30 Days: Yes Use of substances other than those prescribed or required for medical reasons: No Have you been hit, kicked, punched, or otherwise hurt by someone within the past year? If so, by whom?: No Are you DNR?: No Advance Directives: No Advance Directives Information Provided: Yes Advance Directives on File: No Recently lost weight without trying: No Nutrition Risks: No Nutritional Risk Poor oral hygiene: No Meds Allergies Allergy/AdvReac Type Severity Reaction Status Date / Time Tamsulosin AdvReac Mild dizzines Uncoded 07/09/24 10:53 Home Medications ?Medication ?Instructions ?Recorded ?Confirmed ?Last Taken ?Type atorvastatin 40 mg tablet 40 mg PO DAILY 07/17/24 07/17/24 07/16/24 History Exam Height,Weight and Vital Signs: Height 5 ft 7 in Weight 87 kg Vital Signs Temp Pulse Resp BP Pulse Ox O2 Del Method 07/17/24 10:41 98.1 F 68 14 128/79 98 Room Air Airway Mallampati Class: III TM Dist: >3cm Neck ROM: Full Loose/Missing/Broken Teeth: No Heart: RRR Lungs: CTAB Assessment and Plan Assessment Anesthesia Assessment: Anesthesia Plan Discussed and Chart Reviewed Final Anesthetic Review Family History of Problems with Anesthesia: No History of Problems with Anesthesia: No NPO: Yes ASA Class: II Final Preanesthetic Review: No Changes in Pt Med Stat, Meds/Allgs Chart Reviewed, Consent Obtained/Reviewed and Anes Risks/Benef Reviewed Patient Risk: Low Procedure Risk: Low Assessment/Block/Sedation in SS: Assess/Block/Sedation-SS Anesthetic Plan Anesthetic Plan: GA Disposition: Standard PACU
[2024-07-17] VITALS (7 sets, daily range): BP systolic 97–128; BP diastolic 58–87; PULSE 68–88; RESP 14–16; TEMP 36.2–36.7; O2SAT 92–98
--- NOTE | ~2024-07-17 | FL_ITS ---
EXAMINATION: FL GUIDANCE ONLY HISTORY: bilateral ureteral retrogrades COMPARISON: Correlation is made with a CT urogram dated 07/04/2023. TECHNIQUE: Fluoroscopy time: 11.7 seconds. Cumulative Dose: 3.90 mGy. Images: 3. FINDINGS: Images demonstrate opacification of the right intrarenal collecting system, the distal right ureter, the left intrarenal collecting system, and the proximal left ureter. No abnormality is seen in these segments. FL/FL guidance in OR IMPRESSION: Fluoroscopy during procedure. Please see procedure report for additional information. Electronically signed by: René Moyer MD 07/17/2024 01:18 PM [facility]O
--- OUTSIDE RECORDS SUMMARY | 2024-07-17 10:44 | XMS_ITS | Clinical Summary ---
Author Organization [facility] Address [address] [place] [address] Care Team Providers Care Foundry Laborer Coreroom Name Role Phone Lou Vargas MD Primary Care Provider [phone] Source Comments PLEASE NOTE, if this patient [...] Plan of Treatment Not on file Insurance [facility] [employer] PLAN Member Subscriber Plan / Payer (Ef fective 2013-Present) Name:Branden Alegria Relation to Subscriber:Self Name:Branden Alegria Payer ID:[id number] Group ID:[id number] Type:Medicaid Address: [facility] [address] [place] [address] Care Teams Foundry Laborer Coreroom Relationship Specialty Start Date End Date Lou Vargas MD [address] [place] [phone] PCP - General Internal Medicine 01/31/13
[2024-07-17] MEDS: Lactated Ringers 1,000 ML 100 ML IVCONT (10:52)
--- NOTE | 2024-07-17 11:52 | MHC.SHP ---
Pre-Procedural Eval Section A - 24 Hr Update-Section A only Date of Service: 07/17/24 The patient is an INPATIENT: No The patient has been examined within 24 hours of the surgical procedure. The History & Physical has been completed within 30 days and I have reviewed it.: Yes Section B - Complete if H&P > 30 days Chief Complaint: Hematuria, atypical urine cytology Allergies: Allergies Allergy/AdvReac Type Severity Reaction Status Date / Time Tamsulosin AdvReac Mild dizzines Uncoded 07/09/24 10:53 Plan Diagnosis/Plan: Unchanged I have reviewed the history and physical and performed a pertinent physical examination on my patient. No changes have occurred unless specified. Cystoscopy, bladder biopsies, bilateral retrogrades, possible bilateral ureteroscopy. Discussed risks to include but not limited to, blood in the urine, burning with urination, urgency. Time Spent With Patient Time: Total time managing care of this patient today ____ minutes.
--- NOTE | 2024-07-17 12:47 | P.OP_ITS ---
Operative Note Operative Note Date of Service: 07/17/24 Narrative: PreOperative Diagnosis:?? microscopic hematuria, atypical urine cytology Post Operative Diagnosis:?? ?microscopic hematuria, atypical urine cytology Procedure: Cystoscopy, bilateral retrograde bladder biopsies-- (modifier bilateral) Surgeon:?Dr Kaleb Leija Anesthesia:? General Procedure: After informed consent was verified the patient was brought to the operating placed on the OR table in supine position.? General Anesthesia was administered per protocol.? The patient was placed in lithotomy position, prepped and draped in the usual sterile fashion.? Safety pause time-out and side of surgery confirmed.? Antibiotics confirmed. A 22 Romanian cystoscope was inserted transurethrally, the bulbous urethra was within normal limits. The prostatic urethra was nonobstructive. The bladder was visualized.? Both ureteric orifices were in normal position. No suspicious lesions noted. Mild trabeculations noted. The?right ureteric orifice was cannulated?a retrograde examination was performed, no abnormal filling defects visualized. Attention was taken to the left side. The left ureteric orifice was cannulated and a retrograde examination was performed, no abnormal filling defects were visualized. Random bladder biopsies were taken from the posterior wall, right lateral wall, left lateral wall. Cautery was used for hemostasis. The bladder was emptied.? The rigid cystoscope was removed. ? The patient tolerated the procedure well and was brought to the recovery room in stable condition. Complications: None Drains: none
[2024-07-17] MEDS: Phenazopyridine HCL 200 MG TABLET PO (13:20)
[2024-07-17] MEDS: Ketorolac Tromethamine 15 MG/ML VIAL IVPUSH (13:21)
== END 2024-07-17 14:26 | disposition home or self-care (01) ==
PROVIDERS: PCP Internal Medicine; Visit Provider Urology
PROC: (CPT 52204; principal; 2024-07-17 11:30)
DX: R31.29 Other microscopic hematuria (principal); N32.89 Other specified disorders of bladder; N40.0 Benign prostatic hyperplasia without lower urinary tract symptoms; R39.12 Poor urinary stream; Z79.899 Other long term (current) drug therapy; Z88.8 Allergy status to other drugs, medicaments and biological substances; F17.210 Nicotine dependence, cigarettes, uncomplicated
CPT/HCPCS: 52204; 52005; 88305; C1769; J0131; J0690; J1100; J1596; J1885; J2003; J2250; J2371; J2405; J2704; J3010; Q9967

== ENCOUNTER → 2024-07-17 09:57 | Outpatient (BNV) | payer OTHER, SELFPAY | PROVIDERS: PCP Internal Medicine; Visit Provider Urology | DX: R31.29 Other microscopic hematuria (principal) | CPT/HCPCS: 52204; 74420 ==

== ENCOUNTER 2024-08-06 11:27 | Outpatient (AMB) | payer OTHER, SELFPAY ==
--- NOTE | 2024-08-06 11:28 | A.OFFVIS_ITS ---
Intake Visit Reasons: Bladder bx, Retrogrades- follow up Intake Note: Patient is present for BADDLER BX,RETROGRADES F/U Urology Medication:PYRIDIUM,ALFUZOSIN Antibiotic Allergy:TAMSULOSIN Blood Thinner:NONE Supervisor Purification Required: No Allergies Tamsulosin Adverse Reaction (Mild, Uncoded 08/06/24 11:29) dizzines HPI Comments Details: 08/06/24--Here for follow up persistent microscopic hematuria. status post cystoscopy bilateral retrogrades, bladder biopsies, discussed that no suspicious bladder lesions noted, retrogrades within normal limits, bladder biopsies, benign, inflammatory findings. Comorbidity Nicotine dependence, discussed nicotine cessation. Will cont to monitor, fu in 6 months, check urine. He states he is taking the tamsulosin now, misplaced the alfuzosin. 07/09/24--FU US, PSA---persistent microscopic hematuria. Comorbidity Nicotine dependence. Reviewed results with the patient. He is using the alfuzosin with improvement in urinary flow. PSA - 05/07/24--2.26 Renal US - 06/25/24-- within normal limits, no supicious renal parenchymal lesions. plan cystoscopy bladder biopsies, possible bilateral retrogrades/ureteroscopy 05/07/24--5 month FU, had work up for hematuria. Last seen 10/10/23--had cystoscopy at that time--findings: prostatic urethra bilobar enlargement, bulbous urethra WNL, goeu-db-[id number] trabeculations. no suspicious bladder lesions visualized. discussed repeat urine cytology. Discussed nicotine cessation. prescribed tamsulosin 0.4 mg daily. However he states that the tamsulosin cause dizziness so he stopped the medication. He states he is still having a weak stream. We will trial alfuzosin 10 mg daily to replace the tamsulosin. Patient is to call if he gets side effects of dizziness with alfuzosin. Persistent microscopic hematuria we will monitor kidneys-renal ultrasound ordered. No PSA's in chart. PSA screening discussed. Follow-up in 2 months to discuss results. 10/10/2023--here for office cystoscopy. Cystoscopy findings: prostatic urethra bilobar enlargement, bulbous urethra WNL, gjqs-th-xbunqcda trabeculations. no suspicious bladder lesions visualized. In discussion with the patient he does admit to hesitancy of urination especially in the morning. Discussed trial of Flomax 0.4 mg daily, will repeat urine cytology.. Patient to call with any problems regarding medication use. Follow-up in 5 months. 07/15/23--Branden is a 52-year-old male who presents today for Telehealth FU due to microscopic hematuria. Video Attempted. He was initially evaluated on-05/16/2023--for an evaluation of hematuria. He has a history of cigarette smoking, smokes ? pack a day for about 20 year. Denies dysuria, nocturia 1-2 x. 07/15/23--I have discussed CT urogram results enlarged prostate, estimated volume 50 mL, urine cytology negative. Plan-- Follow-up in office cystoscopy. 05/16/2023: Evaluation today--UA--Leukocytes: negative; blood: 1 +. [facility] Surgical History History of surgery on arm Family History Father No problems noted. Mother No problems noted. Social History Are you a primary care information associate to a significant other at home: No Do you presently have visiting nurse or other home services: No Alcohol intake: current Alcohol intake frequency: does not drink Patient Tobacco Use Status: Current everyday Tobacco user Cigarette Packs Per Day: 1 Cigarettes Per Day: 20.0 Review of Systems Const All systems reviewed & are unremarkable except as noted in HPI and below Reports no additional complaints Eyes Reports no additional complaints ENT Reports no additional complaints Card Reports no additional complaints Resp Reports no additional complaints GI Reports no additional complaints Reports as per HPI Musc Reports no additional complaints Skin/Breast Reports system reviewed and no additional complaints, except as documented Neuro Reports no additional complaints Psych Reports no additional complaints Endo Reports no additional complaints Taj/Lymph Reports no additional complaints Aller/Immun Reports no additional complaints Results AMB Urinalysis, Automated UA Leukoctes 0 Maribeth/uL Last Edit by DWIGHT Stuart on 08/06/24 11:47 UA Nitrite Negative Last Edit by DWIGHT Stuart on 08/06/24 11:47 UA Urobilinogen 0.2 mg/dL Last Edit by DWIGHT Stuart on 08/06/24 11:4 7 UA Protein 15 mg/dL Last Edit by DWIGHT Stuart on 08/06/24 11:47 UA pH 6.0 Last Edit by Stacy Otto CCM on 08/06/24 11:47 UA Blood 80 Justo/uL Last Edit by Stacy Otto CCM on 08/06/24 11:47 UA Specific [place]ther[place] 1.025 Last Edit by Stacy Otto CCM on 08/06/24 11: 47 UA Ketone Negative Last Edit by Stacy Otto CCM on 08/06/24 11:47 UA Bilirubin 0 mg/dL Last Edit by DWIGHT Stuart on 08/06/24 11:47 UA Glucose 0 mg/dL Last Edit by DWIGHT Stuart on 08/06/24 11:47 Results Reviewed Results Reviewed: Laboratory Last Values Urine pH (Auto) 6.0 08/06/24 11:46 Specific [place] (Auto) 1.025 08/06/24 11:46 Urine Protein (Auto) 15 mg/dL 08/06/24 11:46 Glucose (UA)(Auto) 0 mg/dL 08/06/24 11:46 Urine Ketones (Auto) Negative 08/06/24 11:46 Urine Blood (Auto) 80 Justo/uL 08/06/24 11:46 Urine Nitrite (Auto) Negative 08/06/24 11:46 Urine Bilirubin (Auto) 0 mg/dL 08/06/24 11:46 Urine Urobilinogen (Auto) 0.2 mg/dL 08/06/24 11:46 Leukocyte Esterase (Auto) 0 Maribeth/uL 08/06/24 11:46 Bladder biopsies- Pathology--Collected: 07/17/24 Location: [facility] Received: 07/17/24 Diagnosis A. Bladder, random posterior wall, biopsy: Benign urothelium with minimal chronic inflammation. B. Bladder, right lateral wall, biopsy: Benign urothelium with minimal chronic inflammation. C. Bladder, left lateral wall, biopsy: Benign urothelium with minimal chronic inflammation. Comment: No muscularis propria present. Clinical History Pre-Op Dx: Hematuria, unspecified Post-Op Dx: Microscopic hematuria, atypical cytology Microscopic Description Microscopic sections reviewed. Material Received A. Random bladder posterior wall bx's B. Right bladder lateral wall bx's C. Left bladder lateral wall bx Gross Description Received in three parts. Part A: Received in formalin labeled random bladder posterior wall bx's? on Telfa are 3 banuelos-pink irregular tissue fragments each measuring 0.25 cm, submitted in toto in a cassette labeled A. Part B: Received in formalin labeled ?right bladder lateral wall bx's? on Telfa are 2 pale, white-pink irregular tissue fragments measuring 0.25 and 0.35 cm, submitted in toto in a cassette labeled B. Part C: Received in formalin labeled ?left bladder lateral wall bx? on Telfa is a 0.25 cm banuelos-pink irregular tissue fragment, submitted in toto in a cassette labeled C. CEDS Date of Service: 06/25/24 US RETROPERITONEAL LIMITED (RENAL ONLY) CLINICAL INFORMATION: Hematuria, unspecified. COMPARISON: No prior available. Correlation made with CT urogram 07/04/2023. TECHNIQUE: Real-time imaging of the kidneys. FINDINGS: RIGHT KIDNEY: 11.6 x 4.4 x 4.9 cm (SAG x AP x TRV). The kidney is normal in size, contour, and echogenicity. Renal cortical thickness is normal. No calculi or focal parenchymal lesions. No hydronephrosis. LEFT KIDNEY: 12.5 x 5.6 x 5.5 cm (SAG x AP x TRV). The kidney is normal in size, contour, and echogenicity. Renal cortical thickness is normal. No calculi or focal parenchymal lesions. No hydronephrosis. IMPRESSION: Normal bilateral kidneys. Date of Service: 07/04/23 EXAMINATION: CT ABDOMEN AND PELVIS WITH CONTRAST CLINICAL INFORMATION: Hematuria. The exam was ordered as a CT Urogram however the eeg technologist perform the scan with IV contrast only due to patient being claustrophobic. COMPARISON: None available. TECHNIQUE: CT of the abdomen and pelvis is performed followed by split bolus contrast-enhanced images using 85 mL Omnipaque 350 contrast. FINDINGS: LUNG BASES: 4 mm smooth solid nodule in the left lower lobe series 2 image 7. No follow-up imaging is recommended as per Fleischner Society guidelines. LIVER, GALLBLADDER, AND BILIARY TREE: The liver is normal in size, shape, and attenuation. No focal hepatic lesion or biliary ductal dilatation is present. The gallbladder is unremarkable with no evidence of radiopaque gallstones, gallbladder wall thickening, or obvious pericholecystic inflammatory changes. PANCREAS: No discrete mass. No ductal dilatation. SPLEEN: Unremarkable. ADRENAL GLANDS: No adrenal mass. KIDNEYS AND URETERS: Evaluation for small calculi is limited due to the lack of an noncontrast acquisition. No sizable calculi are visible. Nephrograms are symmetric. Urinary excretion of contrast is symmetric. No hydroureteronephrosis or ureteral abnormalities. BLADDER: Partially distended. Evaluation for bladder calculi is limited without a noncontrast acquisition however no sizable calculus is visible. No discrete bladder mass. The bladder base is deformed by the enlarged prostate. GASTROINTESTINAL TRACT: The small and large bowel are normal in caliber. The appendix appears normal. No focal bowel wall thickening. ABDOMINAL WALL: Fat-containing direct left inguinal hernia. LYMPH NODES: No lymphadenopathy. VASCULAR: No aortic aneurysm. PELVIC VISCERA: The prostate measures 4.8 x 4.9 x 4.6 cm. Approximately 50 mL. OSSEUS STRUCTURES: Mild degenerative changes in the spine. IMPRESSION: Exam is limited without noncontrast acquisition which was not performed due to patient's claustrophobia. No visible renal, ureteral, or bladder calculi. No suspicious renal mass. No hydroureteronephrosis. Enlarged prostate measuring approximately 50 mL. --------- Urine cytology--Collected: 05/07/24 Location: [email or web address] Received: 05/08/24 Diagnosis Urine: Atypical urothelial cells. See comment. COMMENT: Cellular specimen consisting of a rare small group of atypical urothelial cells, which are small/ medium in size, have variable dark chromatin and increased nuclear/cytoplasmic ratio. The background has more innocuous appearing single urothelial cells, squamous cells, few lymphocytes and red blood cells. Clinical History Urinary tract infection, site not specified Material Received Urine Gross Description Received is 58 cc of clear yellow fluid from which a ThinPrep slide is prepared. Urine cytology--Collected: 10/10/23 Location: [email or web address] Received: 10/11/23 Diagnosis Urine: Few atypical urothelial cells. COMMENT: Examination of a monolayer preparation slide shows benign urothelial cells, benign squamous cells, and a single group of atypical urothelial cells with moderately increased nuclear cytoplasmic ratios meeting the criteria for atypia. There are also casts, cellular debris, scattered inflammatory cells and occasional red blood cells present. Clinical History Nicotine dependence, hematuria Material Received Urine Gross Description Received are 48 cc of clear yellow fluid from which a ThinPrep slide is prepared. Collected: 05/16/23 Location: [facility] Received: 05/17/23 Diagnosis Urine: Negative for high-grade urothelial carcinoma. See comment. COMMENT: Cellular specimen consisting of a rare small group of urothelial cells, which are small/medium in size and have variable chromatin. The background has single urothelial cells without atypia, squamous cells, red blood cells, rare acute inflammatory cells and crystals. The differential diagnosis for these types of groups of urothelial cells includes infection, trauma (e.g. stones) and other types of urothelial neoplasms. Assessment & Plan Assessment & Plan (1) Hematuria: Code(s): R31.9 - Hematuria, unspecified Category: Medical (2) Nicotine dependence: Code(s): F17.200 - Nicotine dependence, unspecified, uncomplicated Category: Medical (3) BPH (benign prostatic hyperplasia): Code(s): N40.0 - Benign prostatic hyperplasia without lower urinary tract symptoms Category: Medical (4) Bladder wall thickening: Code(s): N32.89 - Other specified disorders of bladder Category: Medical Plan discussed nicotine cessation. Will cont to monitor, fu in 6 months, check urine. He states he is taking the tamsulosin now, misplaced the alfuzosin. Orders: Orders AMB Urinalysis Automated 08/06/24 Z13.9 - Encounter for screening, unspecified Patient Instructions: The patient had an opportunity to ask questions regarding treatment plan. The patient expressed understanding and agreement with the above treatment plan. The patient is aware they should contact our office by phone for worsening of their current condition or the appearance of new symptoms. Compliance is encouraged with any medications and followup testing that is ordered. It is a privilege to be allowed the opportunity to participate in the urologic care of your patient. If you have any questions or concerns regarding treatment for the above conditions please do not hesitate to contact me. The office telephone contact is [phone]. This note is constructed in part using voice recognition software. While every effort has been made to ensure accuracy outboard motors experimental mechanic errors may have been included. Yours sincerely, Kaleb Leija MD Coding Level of Care Code Est Pt Level 3 (99311) Diagnoses Hematuria R31.9 Nicotine dependence F17.200 BPH (benign prostatic hyperplasia) N40.0 Bladder wall thickening N32.89
--- OUTSIDE RECORDS SUMMARY | 2024-08-06 13:13 | XMS_ITS | Data Portability ---
Author Organization [place] - [facility], Allergy Address [address] [place] [id number] Care Team Providers Care Manager Investigations Name Role Phone LIVE ADAMS Primary Care [...] 50 mcg/actua tion nasal spray,venkatesh pension [id number], [address] [place], [place], [phone], 4 16:37:09 Patient TargetsNo targets recorded. Patient [...] Details Recorded Time Sensorin eural hearing loss 64657561 Active 2013 Sensorin eural hearing loss, unspecif ied; Note: Date Diagnose d: 03/28/20 14 1:45 PM (389.10) Not Available [facility] 4 03:08:04 Impacted cerumen in right ear 87359782183 75734 Active 2022 Impacted cerumen, right ear; Note: Date Diagnose d: 3 11:22 AM (H61.21) Not Available [facility] 4 03:08:03 Otorrhea of right ear 56748802138 13499 Active 2022 Otorrhea , right ear; Note: Date Diagnose d: 3 11:22 AM (H92.11) Otorrh ea, right ear; Note: Date Diagnose d: 04/04/20 20 11:01 AM (H92.11) ; Start Date : 04/04/20 Not Available [facility] 4 03:08:04 Impacted cerumen 88772285 Completed 201301/13/2024 Impacted cerumen; Location : [facility] CMS Risk: minimal risk CMS Treatmen t: self-berry ited or minor problem Note: Date Diagnose d: 4 12:25 PM (380.4) Not Available [facility] 4 03:08:05 Skin finding 556114656 Active 2016 Other skin changes; Note: Date Diagnose d: 07/19/2016 2:57 PM (R23.8) Not Available [facility] 4 03:08:03 Impacted cerumen in left ear 28649139050 05120 Active 2016 Impacted cerumen, left ear; Note: Date Diagnose d: 07/19/2016 2:56 PM (H61.22) Not Available [facility] 4 03:08:04 Infectiv e otitis externa 87842349 Completed 201301/13/2024 Otitis externa; infectiv e; Location : [facility] CMS Risk: minimal risk [facility] Treatmen t: self-berry ited or minor problem Note: Date Diagnose d: 4 12:25 PM (380.10) Not Available [facility] 4 03:08:05 Sensorin eural hearing loss of bilatera l ears 683549612 Active 2022 Sensorin eural hearing loss, bilatera l; Note: Date Diagnose d: 3 12:11 PM (H90.3) Not Available [facility] 4 03:08:04 Impacted cerumen of bilatera l ears 47659995579 75048 Active 2023 Impacted cerumen, bilatera l; Note: Date Diagnose d: 4 4:34 PM (H61.23) Not Available [facility] 4 03:08:03 Itching of skin 415813903 Active 2023 Other pruritus ; Note: Date Diagnose d: 4 10:25 AM (L29.8) Not Available [facility] 4 03:08:05 Conducti ve hearing loss 47326277 Active 2023 CHAD SINCLAIR [address] [place] [address], [place], [address] , [place] - [facility] 4 16:29:25 Conducti ve hearing loss 88357431 Active 2023 CHAD SINCLAIR [address] [address], [place], [address] , [place] - [facility] 4 16:31:04 Middle ear effusion 0274271992 Active 2023 SHERRY BECKFORD PA-C [address] [address], [place], [address] , [facility] 4 16:36:40 Problem Notes None recorded. Procedures Surgical History Date Name Laterality Status Provider Name and Address Organization Details Recorded Time 4 Comp Audio with Tymps (53402 & 93273) completed CHAD SINCLAIR [address] [facility],[address] [address], [place], [address], [facility] 03/12/2024 16:25:33 4 Cerumen removal without microscope right completed SHERRY BECKFORD PA-C [address] [facility],[place] [address], [place], [address], [facility] 03/12/2024 16:42:34 Imaging Results Imaging Date [...] mg tablet 04/04 completed Medicati on ID: [id number] D uration Value: 30 Brand Name: sertrali ne Send Method: E-Prescr ibed Sub s Allowed: subs OK Speci al Instruct ion: TK 1 T PO D Medica tionGene ricName: sertrali ne Not Available Not Available Not Available topiramat e 25 mg tablet 04/04 completed Medicati on ID: [id number] D uration Value: 30 Brand Name: topirama te Send Method: E-Prescr ibed Sub s Allowed: subs OK Medic ationGen ericName : topirama te Not Available Not Available Not Available Ciloxan 0.3 % eye drops 03/12 completed Medicati on ID: [id number] D uration Value: 7 Prescri bed By [...] as needed 03/12 completed Medicati on ID: [id number] D uration Value: 14 Brand Name: predniso lone sodium phosphat e Send Method: E-Prescr ibed Sub s Allowed: subs OK Medic ationGen ericName : predniso lone sodium phosphat e Not Available Not Available Not Available mirtazapi ne 30 mg tablet 03/12 completed Medicati on ID: [id number] B rand Name: mirtazap ine Send Method: [...] drops,venkatesh pension 03/12 completed Medicati on ID: [id number] D uration Value: 14 Prescri bed By [...] a day 03/12 completed Medicati on ID: [id number] D uration Value: 14 Brand Name: Ciprodex Send Method: E-Prescr ibed Sub s Allowed: subs OK Speci al Instruct ion: right ear Medi cationGe nericNam e: Ciprodex Not Available Not Available Not Available prednisol one acetate (PF) 1 % eye drops,venkatesh pension Apply 2 drop once a day 03/12 completed Medicati on ID: [id number] D uration Value: 7 Brand Name: predniso [...] SNOMED-CT Code Diagnosis ICD10 Code Diagnosis Note [id number] JOSHUA BENAVIDES MD [facility] [id number] [place] [address] 03/12/2024 15:17:06 03/12/2024 16:41:14 Conductive hearing loss [id number] H90.A12 Audiologic al evaluation results:Ri ght ear:{{Norm [...] a hermetic seal}} Sensorineu ral hearing loss 34194141 H90.A21 Impacted c erumen in right ear [id number] 289422 H61.21 Middle ear effusion 1004 113937 H74.8X9 Health Concerns Section Related Observation LastModified by Organization Detai ls LastModified Time None Recorded Concern Status LastModified by Organization Details LastModified Time None Recorded Advance Directives Directive None Recorded Payers Encounter Date Sequence Insurance Name Policy Number Policy Hollins Covered Member ID Hollins Member ID Guarantor Name 03/12/[address] [place] [address] [id number] Branden Alegria [id number] Branden Alegria Notes Date Note Type Note Provider Name and Address Organization Details Recorded Time 03/12/2024 text/html 53 year old male presents to the office for evaluation of his left ear. He reports that he recently had tonsillitis and was prescribed Amoxicillin. Since that time he has had the sensation that there is fluid in the left ear. JOSHUA BENAVIDES MD [address] [place] [address], [place], [address], [facility] - [facility] 03/13/2024 08:13:54
--- OUTSIDE RECORDS SUMMARY | 2024-08-06 13:13 | XMS_ITS | Clinical Summary ---
Author Organization [facility] Address [address] [place] [address] Care Team Providers Care Clinical Research Specialist Name Role Phone Lou Vargas MD Primary Care Provider [phone] Source Comments PLEASE NOTE, if this patient [...] Plan of Treatment Not on file Insurance [facility] [employer] PL[employer] Member Subscriber Plan / Payer (Ef fective 2013-Present) Name:Branden Alegria Relation to Subscriber:Self Name:Branden Alegria Payer ID:[id number] Group ID:[id number] Type:Medicaid Address: [facility] [address] [place] [address] Care Teams Clinical Research Specialist Relationship Specialty Start Date End Date Lou Vargas MD [address] [place] [id number] PCP - General Internal Medicine 01/31/13
== END 2024-08-06 12:11 | disposition home or self-care (01) ==
PROVIDERS: PCP Internal Medicine; Visit Provider Urology
DX: Z13.9 Encounter for screening, unspecified (principal)

== ENCOUNTER → 2024-08-06 11:27 | Outpatient (BNVA) | payer OTHER, SELFPAY | PROVIDERS: PCP Internal Medicine; Visit Provider Urology | DX: R31.9 Hematuria, unspecified (principal); N40.0 Benign prostatic hyperplasia without lower urinary tract symptoms; N32.89 Other specified disorders of bladder; F17.210 Nicotine dependence, cigarettes, uncomplicated | CPT/HCPCS: 81003; 99212 ==

== ENCOUNTER 2024-12-31 10:00 | Outpatient (AMB) | payer OTHER, SELFPAY ==
--- NOTE | 2024-12-31 10:03 | A.OFFVIS_ITS ---
Intake Visit Reasons: F/u urine Intake Note: Patient is present for urine follow up Urology Medication:None Antibiotic Allergy:Tamsulosin Blood Thinner:None Clinical Specialist Required: No Allergies Tamsulosin Adverse Reaction (Mild, Uncoded 08/06/24 11:29) dizzines Medication List - Last Reconciled 12/31/24 by Kaleb Leija MD atorvastatin 40 mg PO DAILY HPI Comments Details: 12/31/24-- History of Present Illness - The patient is a 54-year-old male presenting with hematuria. He had been on alpha blockers, but currently not taking and feels he is emptying well. - Microscopic Hematuria has been noted with prior result of atypical cells in urinary cytology. Will repeat urine cytology - Previous bladder biopsies were benign. - A PSA test conducted in April was normal. - The patient is scheduled for a follow-up PSA test in nine months. Results - Urinary cytology: Atypical cells previously noted - Bladder Biopsies: benign, chronic inflammation - PSA: April--2.26 Plan - Repeat urinary cytology, Referral to nephrology for further evaluation of hematuria. - Schedule follow-up PSA test in nine months. 08/06/24--Here for follow up persistent microscopic hematuria. status post cystoscopy bilateral retrogrades, bladder biopsies, discussed that no suspicious bladder lesions noted, retrogrades within normal limits, bladder biopsies, benign, inflammatory findings. Comorbidity Nicotine dependence, discussed nicotine cessation. Will cont to monitor, fu in 6 months, check urine. He states he is taking the tamsulosin now, misplaced the alfuzosin. 07/09/24--FU US, PSA---persistent microscopic hematuria. Comorbidity Nicotine dependence. Reviewed results with the patient. He is using the alfuzosin with improvement in urinary flow. PSA - 05/07/24--2.26 Renal US - 06/25/24-- within normal limits, no supicious renal parenchymal lesions. plan cystoscopy bladder biopsies, possible bilateral retrogrades/ureteroscopy 05/07/24--5 month FU, had work up for hematuria. Last seen 10/10/23--had cystoscopy at that time--findings: prostatic urethra bilobar enlargement, bulbous urethra WNL, dawt-wh-vczljcpj trabeculations. no suspicious bladder lesions visualized. discussed repeat urine cytology. Discussed nicotine cessation. prescribed tamsulosin 0.4 mg daily. However he states that the tamsulosin cause dizziness so he stopped the medication. He states he is still having a weak stream. We will trial alfuzosin 10 mg daily to replace the tamsulosin. Patient is to call if he gets side effects of dizziness with alfuzosin. Persistent microscopic hematuria we will monitor kidneys-renal ultrasound ordered. No PSA's in chart. PSA screening discussed. Follow-up in 2 months to discuss results. 10/10/2023--here for office cystoscopy. Cystoscopy findings: prostatic urethra bilobar enlargement, bulbous urethra WNL, euio-cc-sxfxqwkp trabeculations. no suspicious bladder lesions visualized. In discussion with the patient he does admit to hesitancy of urination especially in the morning. Discussed trial of Flomax 0.4 mg daily, will repeat urine cytology.. Patient to call with any problems regarding medication use. Follow-up in 5 months. 07/15/23--Branden is a 52-year-old male who presents today for Telehealth FU due to microscopic hematuria. Video Attempted. He was initially evaluated on-05/16/2023--for an evaluation of hematuria. He has a history of cigarette smoking, smokes ? pack a day for about 20 year. Denies dysuria, nocturia 1-2 x. 07/15/23--I have discussed CT urogram results enlarged prostate, estimated volume 50 mL, urine cytology negative. Plan-- Follow-up in office cystoscopy. 05/16/2023: Evaluation today--UA--Leukocytes: negative; blood: 1 +. [facility] Surgical History History of surgery on arm Family History Father No problems noted. Mother No problems noted. Social History Are you a primary lawn care professional to a significant other at home: No Do you presently have visiting nurse or other home services: No Alcohol intake: current Alcohol intake frequency: does not drink Patient Tobacco Use Status: Current everyday Tobacco user Cigarette Packs Per Day: 1 Cigarettes Per Day: 20.0 Review of Systems Const All systems reviewed & are unremarkable except as noted in HPI and below Reports no additional complaints Eyes Reports no additional complaints ENT Reports no additional complaints Card Reports no additional complaints Resp Reports no additional complaints GI Reports no additional complaints Reports as per HPI Musc Reports no additional complaints Skin/Breast Reports system reviewed and no additional complaints, except as documented Neuro Reports no additional complaints Psych Reports no additional complaints Endo Reports no additional complaints Taj/Lymph Reports no additional complaints Aller/Immun Reports no additional complaints Assessment & Plan Assessment & Plan (1) Microscopic hematuria: Code(s): R31.29 - Other microscopic hematuria Category: Medical (2) Abnormal urine cytology: Code(s): R82.89 - Other abnormal findings on cytological and histological examination of urine Category: Medical (3) BPH (benign prostatic hyperplasia): Code(s): N40.0 - Benign prostatic hyperplasia without lower urinary tract symptoms Category: Medical (4) Nicotine dependence: Code(s): F17.200 - Nicotine dependence, unspecified, uncomplicated Category: Medical (5) Screening PSA (prostate specific antigen): Code(s): Z12.5 - Encounter for screening for malignant neoplasm of prostate Category: Medical Plan Plan - Repeat urinary cytology, Referral to nephrology for further evaluation of hematuria. - Schedule follow-up PSA test in nine months. Orders: Orders PSA,Total (Free>4and<10) 8 Months Z12.5 - Encounter for screening for malignant neoplasm of prostate Referrals Nephrology Referral R31.29 - Other microscopic hematuria Patient Instructions: The patient had an opportunity to ask questions regarding treatment plan. The patient expressed understanding and agreement with the above treatment plan. The patient is aware they should contact our office by phone for worsening of their current condition or the appearance of new symptoms. Compliance is encouraged with any medications and followup testing that is ordered. It is a privilege to be allowed the opportunity to participate in the urologic care of your patient. If you have any questions or concerns regarding treatment for the above conditions please do not hesitate to contact me. The office telephone contact is [phone]. This note is constructed in part using voice recognition software. While every effort has been made to ensure accuracy medical records technician errors may have been included. Yours sincerely, Kaleb Leija MD Scribe Plan - Not visible on output: Patient was informed and verbally consented to the use of an ambient scribe for clinic note documentation during this visit. Coding Level of Care Code Est Pt Level 4 (09046) Complex EM visit Add On G2211 Diagnoses Microscopic hematuria R31.29 Abnormal urine cytology R82.89 BPH (benign prostatic hyperplasia) N40.0 Nicotine dependence F17.200 Screening PSA (prostate specific antigen) Z12.5
--- OUTSIDE RECORDS SUMMARY | 2024-12-31 10:48 | XMS_ITS | Data Portability ---
Author Organization [place] - [facility], Allergy Address [address] [place] [address] Care Team Providers [employer] Membership Sales Agent Name Role Phone LIVE ADAMS Primary Care [...] 50 mcg/actua tion nasal spray,venkatesh pension 024 JENNIFER Not available 16:37:09 Patient TargetsNo targets recorded. Patient InstructionsNo [...] Name and Address Organization Details Recorded Time Impacted cerumen [id number] Completed 201301/13/2024 Impacted cerumen; Location : [place] CMS Risk: minimal risk CMS Treatmen t: self-berry ited or minor problem Note: Date Diagnose d: 4 12:25 PM (380.4) Not Available [facility] 4 03:08:05 Infectiv e otitis externa [id number] Completed 201301/13/2024 Otitis externa; infectiv e; Location : [place] CMS Risk: minimal risk CMS Treatmen t: self-berry ited or minor problem Note: Date Diagnose d: 4 12:25 PM (380.10) Not Available [facility] 4 03:08:05 Sensorin eural hearing loss 84342431 Active 2013 Sensorin eural hearing loss, unspecif ied; Note: Date Diagnose d: 03/28/20 14 1:45 PM (389.10) Not Available [facility] 4 03:08:04 Skin finding 635832517 Active 2016 Other skin changes; Note: Date Diagnose d: 07/19/2016 2:57 PM (R23.8) Not Available [facility] 4 03:08:03 Impacted cerumen in left ear 62153986247 15220 Active 2016 Impacted cerumen, left ear; Note: Date Diagnose d: 07/19/2016 2:56 PM (H61.22) Not Available [facility] 4 03:08:04 Sensorin eural hearing loss of bilatera l ears 615260940 Active 2022 Sensorin eural hearing loss, bilatera l; Note: Date Diagnose d: 3 12:11 PM (H90.3) Not Available [facility] 4 03:08:04 Impacted cerumen in right ear 20630860862 54711 Active 2022 Impacted cerumen, right ear; Note: Date Diagnose d: 3 11:22 AM (H61.21) Not Available [facility] 4 03:08:03 Otorrhea of right ear 22161196328 76475 Active 2022 Otorrhea , right ear; Note: Date Diagnose d: 3 11:22 AM (H92.11) Otorrh ea, right ear; Note: Date Diagnose d: 04/04/20 11:01 AM (H92.11) ; Start Date : 04/04/20 Not Available [facility] 4 03:08:04 Itching of skin 929646877 Active 2023 Other pruritus ; Note: Date Diagnose d: 4 10:25 AM (L29.8) Not Available [facility] 4 03:08:05 Impacted cerumen of bilatera l ears 92227650968 79932 Active 2023 Impacted cerumen, bilatera l; Note: Date Diagnose d: 4 4:34 PM (H61.23) Not Available [facility] 4 03:08:03 Conducti ve hearing loss 00767659 Active 2023 CHAD SINCLAIR [address] [facility],[place] [address], [place], [address] , [place] - [facility] 4 16:29:25 Conducti ve hearing loss 69851543 Active 2023 CHAD SINCLAIR [address] [facility],[place] [address], [place], [address] , [place] - [facility] 4 16:31:04 Middle ear effusion 2020241249 Active 2023 SHERRY BECKFORD PA-C [address] [facility] [address], [place], [address] , [place] - [facility] 4 16:36:40 Problem Notes None recorded. Procedures Surgical History Date Name Laterality Status Provider Name and Address Organization Details Recorded Time 4 Comp Audio with Tymps - 80469 & 75215 completed CHAD SINCLAIR [address] [facility],[place] [address], [place], [address], [facility] - [facility] 03/12/2024 16:25:33 4 Cerumen removal without microscope right completed SHERRY BECKFORD PA-C [address] [facility] [address], [place], [address], [facility] - [facility] 03/12/2024 16:42:34 Imaging Results None recorded. Procedure Notes None recorded. Medical Equipment None [...] mg tablet 04/04 completed Medicati on ID: [id number] D uration Value: 30 Brand Name: sertrali ne Send Method: E-Prescr ibed Sub s Allowed: subs OK Speci al Instruct ion: TK 1 T PO D Medica tionGene ricName: sertrali ne Not Available Not Available Not Available topiramat e 25 mg tablet 04/04 completed Medicati on ID: [id number] D uration Value: 30 Brand Name: topirama te Send Method: E-Prescr ibed Sub s Allowed: subs OK Medic ationGen ericName : topirama te Not Available Not Available Not Available Ciloxan 0.3 % eye drops 03/12 completed Medicati on ID: [id number] D uration Value: 7 Prescri bed By [...] as needed 03/12 completed Medicati on ID: [id number] D uration Value: 14 Brand Name: predniso lone sodium phosphat e Send Method: E-Prescr ibed Sub s Allowed: subs OK Medic ationGen ericName : predniso lone sodium phosphat e Not Available Not Available Not Available mirtazapi ne 30 mg tablet 03/12 completed Medicati on ID: [id number] B rand Name: mirtazap ine Send Method: [...] drops,venkatesh pension 03/12 completed Medicati on ID: [id number] D uration Value: 14 Prescri bed By [...] a day 03/12 completed Medicati on ID: [id number] D uration Value: 14 Brand Name: Ciprodex Send Method: E-Prescr ibed Sub s Allowed: subs OK Speci al Instruct ion: right ear Medi cationGe nericNam e: Ciprodex Not Available Not Available Not Available prednisol one acetate (PF) 1 % eye drops,venkatesh pension Apply 2 drop once a day 03/12 completed Medicati on ID: [id number] D uration Value: 7 Brand Name: predniso [...] SNOMED-CT Code Diagnosis ICD10 Code Diagnosis Note [id number] SHERRY BECKFORD PA-C [facility] on [address] [place] [address] 03/12/2024 15:17:06 03/12/2024 16:41:14 Conductive hearing loss 46845674 H90.A12 Audiologic al evaluation results:Ri ght ear:Normal sloping to mild sensorineu ral hearing loss with excellent word recognitio n.Left ear:Normal sloping to severe conductive hearing loss with excellent word recognitio n.Tympanom etry:Right Ear:Type ALeft Ear:Type B Sensorineu ral hearing loss 22402588 H90.A21 Impacted c erumen in right ear [id number] 941161 H61.21 Middle ear effusion 1004 279166 H74.8X9 Health Concerns Section Related Observation LastModified by Organization Detai ls LastModified Time None Recorded Concern Status LastModified by Organization Details LastModified Time None Recorded Advance Directives Directive None Recorded Payers Insurance Date Sequence Insurance Name Policy Number Policy Hollins Covered Member ID Hollins Member ID Guarantor Name 03/14/2024 1 [facility] [id number] Branden Alegria [id number] Branden Alegria 03/12/2024 1 [place] [address] [employer] W[employer] FUND (MEDICARE SUPPLEMENT) [id number] Branden Alegria [id number] Branden Alegria Notes Date Note Type Note Provider Name and Address Organization Details Recorded Time 03/12/2024 text/html 53 year old male presents to the office for evaluation of his left ear. He reports that he recently had tonsillitis and was prescribed Amoxicillin. Since that time he has had the sensation that there is fluid in the left ear. JOSHUA BENAVIDES MD [address] [place] [address], [place], [address], [facility] - [facility] 03/13/2024 08:13:54
--- OUTSIDE RECORDS SUMMARY | 2024-12-31 10:48 | XMS_ITS | Clinical Summary ---
Author Organization [facility] Address [address] [place] [address] Care Team Providers Care Gasket Winder Name Role Phone Lou Vargas MD Primary Care Provider [phone] Source Comments PLEASE NOTE, if this patient [...] 76 02/01/2013 11:14 AM EDT Temperature 37.3 C (99.1 F) 02/01/2013 11:14 AM EDT Respiratory Rate 19 02/01/2013 11:14 AM EDT Oxygen Saturation - - Inhaled Oxygen Concentration - - Weight 77.6 kg (171 lb) 02/01/2013 11:14 AM EDT Height - - Body Mass Index - - Plan of Treatment Not on file Insurance [facility] [employer] PL[employer] Member Subscriber Plan / Payer (Ef fective 2013-Present) Name:Branden Alegria Relation to Subscriber:Self Name:Branden Alegria Payer ID:[id number] Group ID:[id number] Type:Medicaid Address: [facility] [address] [place] [address] Care Teams Gasket Winder Relationship Specialty Start Date End Date Lou Vargas MD [address] [place] [phone] PCP - General Internal Medicine 01/31/13
== END 2024-12-31 10:54 | disposition home or self-care (01) ==
LOC: HO.HUSH 10:01
PROVIDERS: PCP Internal Medicine; Visit Provider Urology
DX: R31.29 Other microscopic hematuria (principal); R82.89 Other abnormal findings on cytological and histological examination of urine; N40.0 Benign prostatic hyperplasia without lower urinary tract symptoms; F17.200 Nicotine dependence, unspecified, uncomplicated; Z12.5 Encounter for screening for malignant neoplasm of prostate; Z13.9 Encounter for screening, unspecified
CPT/HCPCS: 99214; G2211

== ENCOUNTER 2024-12-31 10:00 | Outpatient (REF) | payer OTHER, SELFPAY | END 2024-12-31 10:01 | disposition home or self-care (01) | LOC: HO.LAB 10:00 | PROVIDERS: PCP Internal Medicine; Visit Provider Urology | DX: R31.29 Other microscopic hematuria (principal); Z13.9 Encounter for screening, unspecified | CPT/HCPCS: 81003; 87086; 99212 ==

== ENCOUNTER 2025-01-14 13:48 | Outpatient (REF) | payer OTHER, SELFPAY ==
[2025-01-14 17:39] LABS: Appearance Urine Clear; Glucose Urine UA Negative (Negative); PH 7.5 (5.0-9.0); Specific Gravity - Urine 1.020 (1.005-1.025); UMIC TRIGGER UA YES
[2025-01-14 17:46] LABS: Hematocrit 41.6 % (42.0-52.0); Hemoglobin 15.0 g/dl (14.0-18.0); Mean Corpuscular HGB Conc 36.1 g/dl (31.0-36.0); Mean Corpuscular Hemoglobin 32.9 pg (27.0-33.0); Mean Corpuscular Volume 91.2 fL (80.0-98.0); NRBC Abs Auto 0.000 X10*3/uL (0.0-0.012); NRBC Pct Auto 0.0 /100WBC (0.0-0.2); Platelet Count 264 X10*3/uL (160-400); Red Blood Count 4.56 X10*6/uL (4.60-5.80); White Blood Count 9.9 X10*3/uL (4.8-10.8)
[2025-01-14 17:52] LABS: Microalbum/Creatinine Ratio Ur 5.7 ug/mg cr (<30); Total Protein Urine Random < 7 mg/dL (<12)
[2025-01-14 17:57] LABS: Anion Gap 11 (12-20); Blood Urea Nitrogen 13 mg/dL (9-16); Calcium 8.8 mg/dL (8.4-10.2); Carbon Dioxide 25 mmol/L (22-29); Chloride 107 mmol/L (96-108); Estimated Glomerular Filt Rate > 60; Potassium 3.8 mmol/L (3.3-5.1); Sodium 139 mmol/L (135-145)
[2025-01-15 08:18] LABS: HBS Num1 12.79 mIU/mL (0-7.99); HBc Num1 0.13 S/CO (0.00-0.79); HBsAGNum1 0.37 S/CO (0.00-0.99); HIV Num 1 0.04 S/CO (0.00-0.99); Hepatitis B Surface Antigen Negative (Negative); ~HepC Num1 0.08 S/CO (0.00-0.79); ~Hepatitis B Surface Antibody REACTIVE (Nonreactive); ~Hepatitis C Antibody Nonreactive (Nonreactive)
[2025-01-15 23:23] LABS: Anti Glomerular Basement Memb <1.0 AI; Proteinase 3 PR3 Antibodies <1.0 AI
[2025-01-16 12:14] LABS: Anti Nuclear Antibody Screen NEGATIVE (NEGATIVE)
== END 2025-01-14 13:49 | disposition home or self-care (01) ==
LOC: HO.HKASLDS 13:48
PROVIDERS: PCP Internal Medicine; Referring Provider Urology; Visit Provider Internal Medicine Critical Care Medicine
DX: R31.29 Other microscopic hematuria (principal); N32.89 Other specified disorders of bladder; F17.200 Nicotine dependence, unspecified, uncomplicated; Z11.4 Encounter for screening for human immunodeficiency virus [HIV]; Z01.84 Encounter for antibody response examination; Z11.59 Encounter for screening for other viral diseases
CPT/HCPCS: 36415; 80048; 81001; 82043; 82570; 83520; 84156; 85027; 86021; 86038; 86160; 86704; 86706; 86803; 87340; 87389; 99202

== ENCOUNTER 2025-01-14 13:48 | Outpatient (AMB) | payer OTHER, SELFPAY ==
--- OUTSIDE RECORDS SUMMARY | 2025-01-14 14:01 | XMS_ITS | Clinical Summary ---
Author Organization [facility] Address [address] [place] [address] Care Team Providers Care [employer] Mainframe Developer Name Role Phone Lou Vargas MD Primary Care Provider [phone] Source Comments PLEASE NOTE, if this patient [...] Plan of Treatment Not on file Insurance [facility] [employer] PLAN Member Subscriber Plan / Payer (Ef fective 2013-Present) Name:Branden Alegria Relation to Subscriber:Self Name:Branden Alegria Payer ID:[id number] Group ID:[id number] Type:Medicaid Address: [facility] [address] [place] [address] Care Teams Cobol Mainframe Developer Relationship Specialty Start Date End Date Lou Vargas MD [address] [place] [phone] PCP - General Internal Medicine 01/31/13
--- NOTE | 2025-01-14 14:03 | HO.NEPHOV ---
Vital Signs 01/14/25 14:04 Height 5 ft 6 in Weight 184 lb 8 oz BMI 29.8 BP 114/84 Blood Pressure Location Lt brachial Position Sitting Pulse 84 Pulse Source Pulse Oximeter Pulse Oximetry (%) 95 Oxygen Delivery Method Room Air Intake Visit Reasons: INP: microscopic hematuria-Conf Lime Mixer Tender Required: No Accompanied by: Self / Same As Patient Allergies Tamsulosin Adverse Reaction (Mild, Uncoded 08/06/24 11:29) dizzines HPI Comments Details: 54-year-old male with PMH of hyperlipidemia he is here for evaluation of hematuria. He has hematuria for about 12 years, but normal kidney function. He underwent cystoscopy and bilateral retrogrades and bladder biopsy in July 2024 which was benign in short chronic inflammation. PSA in April 2024 normal Renal ultrasound in June 2024 showed normal size kidneys, no calculi, no lesions no family history of kidney problems, no history of stone, father has stone no hearing problems or corneal problems in family. PFSH Surgical History History of surgery on arm Family History Father No problems noted. Mother No problems noted. Social History Are you a primary small animal caretaker to a significant other at home: No Do you presently have visiting nurse or other home services: No Alcohol intake: current Alcohol intake frequency: does not drink Patient Tobacco Use Status: Current everyday Tobacco user Cigarette Packs Per Day: 1 Cigarettes Per Day: 20.0 Review of Systems Const Details: Const Denies body aches, Denies excessive sweating and Denies fatigue Eyes Denies blurry vision and normal vision ENT Denies bleeding gums and Denies change in voice, normal hearing Card Denies chest pain and Denies leg ulcers Resp Denies cough and Denies excessive phlegm production GI Denies abdominal pain and Denies bloating Denies hematuria, Denies urinary frequency and Denies difficulty voiding Musc Denies abnormal gait Neuro Denies Neuro-related abnormal movements, Denies abnormal gait and Denies behavioral changes Psych Denies behavioral changes and Denies change in appetite Endo Denies change in body appearance, Denies excessive sweating and Denies fatigue Physical Exam Vital Signs: Last Vital Signs Pulse 84 01/14/25 14:04 BP 114/84 01/14/25 14:04 Pulse Ox 95 01/14/25 14:04 Oxygen Delivery Method Room Air 01/14/25 14:04 BMI result Body Mass Index 29.8 General: Pleasant Middle aged male, comfortable, sitting on the chair Nutritional Appearance: well nourished and overweight Eyes: appearance normal, both eyes and all related structures; Alignment and Position: alignment normal and position normal Neck: No lymphadenopathy, no thyromegaly Resp: bilateral air entry equal, no added sounds present Cardio: Regular rate, regular rhythm; Heart sounds: S1 normal heart sound present and S2 normal heart sound present, no edema GI: soft, nontender, no guarding, no hepatosplenomegaly : bladder normal to inspection, bladder normal to palpation, no renal angle tenderness Skin: no rashes or lesions noted and elasticity normal Neuro: oriented to person, oriented to place, oriented to time and moves all extremities Results Reviewed Nephrology Results: BUN, (9-16) 10 mg/dL 05/07/24 Creatinine, (0.5-1.4) 0.77 mg/dL 05/07/24 Renal US 06/25/24 Assessment & Plan Assessment & Plan (1) Microscopic hematuria: Code(s): R31.29 - Other microscopic hematuria Category: Medical (2) Bladder wall thickening: Code(s): N32.89 - Other specified disorders of bladder Category: Medical (3) Hematuria: Code(s): R31.9 - Hematuria, unspecified Category: Medical (4) Nicotine dependence: Code(s): F17.200 - Nicotine dependence, unspecified, uncomplicated Category: Medical Plan Hematuria: Patient has some asymptomatic hematuria for about 12 years with normal renal function now. No family history of renal disease, ocular disease or hearing difficulties at young age. Renal ultrasound normal, no stones, no ureteric lesions. Given that he is a smoker underwent cystoscopy with bilateral retrograde ureteroscopy, biopsy was benign showing chronic inflammation. plan: We will get repeat urinalysis unknown with urine protein creatinine ratio, urine microalbumin creatinine ratio to see there is any concurrent proteinuria which would warrant further workup. We will also get HIV, hepatitis panel, ROSIE, ANCA, complement levels and a anti GBM antibody. If all this test comes back negative we will continue to follow him every 6 months, in case if he develops any proteinuria or deterioration in renal function we will get a renal biopsy. This plan has been very well explained to the patient. Orders: Orders HIV Ab/Ag Today - Other specified disorders of bladder, R31.29 - Other microscopic hematuria, R31.9 - Hematuria, unspecified Hepatitis B,C Profile Today - Other specified disorders of bladder, R31.29 - Other microscopic hematuria, R31.9 - Hematuria, unspecified ROSIE Reflex Titer and Pattern Today - Other specified disorders of bladder, R31.29 - Other microscopic hematuria, R31.9 - Hematuria, unspecified ANCA Vasculitides Today - Other specified disorders of bladder, R31.29 - Other microscopic hematuria, R31.9 - Hematuria, unspecified Complement C3 Today - Other specified disorders of bladder, R31.29 - Other microscopic hematuria, R31.9 - Hematuria, unspecified Complement C4 Today - Other specified disorders of bladder, R31.29 - Other microscopic hematuria, R31.9 - Hematuria, unspecified Anti Glomerular Basement Memb Today - Other specified disorders of bladder, R31.29 - Other microscopic hematuria, R31.9 - Hematuria, unspecified UA and rflx microscopic Today - Other specified disorders of bladder, R31.29 - Other microscopic hematuria, R31.9 - Hematuria, unspecified Microalbumin, Random (w Creat) Today - Other specified disorders of bladder, R31.29 - Other microscopic hematuria, R31.9 - Hematuria, unspecified Total Protein Urine Random Today - Other specified disorders of bladder, R31.29 - Other microscopic hematuria, R31.9 - Hematuria, unspecified Basic Metabolic Panel Today - Other specified disorders of bladder, R31.29 - Other microscopic hematuria, R31.9 - Hematuria, unspecified Complete Blood Count no Diff Today - Other specified disorders of bladder, R31.29 - Other microscopic hematuria, R31.9 - Hematuria, unspecified Coding Level of Care Code New Pt Level 4 (40129) Diagnoses Microscopic hematuria R31.29 Bladder wall thickening Hematuria R31.9 Nicotine dependence F17.200
[2025-01-14 14:04] VITALS: BP 114/84; PULSE 84; O2SAT 95; BMI 29.8
== END 2025-01-14 14:26 | disposition home or self-care (01) ==
LOC: HO.HKAS 13:49
PROVIDERS: PCP Internal Medicine; Referring Provider Urology; Visit Provider Internal Medicine Critical Care Medicine
DX: R31.29 Other microscopic hematuria (principal); N32.89 Other specified disorders of bladder; R31.9 Hematuria, unspecified; F17.200 Nicotine dependence, unspecified, uncomplicated
CPT/HCPCS: 99204

== ENCOUNTER 2025-01-14 14:32 | Outpatient (REF) | payer OTHER, SELFPAY | END 2025-01-14 14:33 | disposition home or self-care (01) | LOC: HO.HKASLDS 14:32 | PROVIDERS: Visit Provider Internal Medicine Critical Care Medicine | DX: Z13.89 Encounter for screening for other disorder (principal) ==